=== PATIENT | female | born 1980 | race Caucasian/White ===

== ENCOUNTER → 2023-07-02 08:03 | Outpatient (REF) | payer BC, SELFPAY | LOC: WDC 08:03 | PROVIDERS: ATTENDING PHYSICIAN Nurse Practitioner Adult Health; FAMILY PHYSICIAN Student in an Organized Health Care Education/Training Program | DX: Z12.31 Encounter for screening mammogram for malignant neoplasm of breast (principal); R92.8 Other abnormal and inconclusive findings on diagnostic imaging of breast | CPT/HCPCS: 76642; 77063; 77067 ==

== ENCOUNTER 2023-09-15 23:30 | Inpatient (IN) | payer BC, SELFPAY ==
[2023-09-15] VITALS (9 sets, daily range): BP systolic 116–143; BP diastolic 78–95; BMI 40.2
[2023-09-15 17:02] LABS: % Basophils 0.4 % (0-2); % Eosinophils 1.2 % (0-6); % Immature Granulocytes 0.5 % (0-0.5); % Lymphocytes 21.3 % (20.5-51.1); % Monocytes 5.6 % (1.7-9.3); Absolute Basophils 0.1 10^3/uL (0-0.2); Absolute Eosinophils 0.2 10^3/uL (0-0.7); Absolute Immature Granulocytes 0.1 10^3/uL (0-0.05); Absolute Lymphocytes 3.2 10^3/uL (1.2-3.4); Absolute Monocytes 0.8 10^3/uL (0.1-0.6); Absolute Neutrophils 10.8 10^3/uL (1.4-6.5); Hematocrit 40.4 % (37.0-47.0); Hemoglobin 13.6 g/dL (12.0-16.0); Mean Corp Hgb Conc. 33.7 g/dL (33.0-37.0); Mean Corpuscular Hgb 31.2 pg (27.0-31.0); Mean Corpuscular Volume 92.7 fL (81.0-99.0); Mean Platelet Volume 10.7 fL (7.4-10.4); Nucleated Red Blood Cells % 0 %; Platelet Count 285 10^3/uL (130-400); Red Blood Cell Count 4.36 10^6/uL (4.20-5.40); Red Cell Dist. Width 11.9 % (11.5-14.5); White Blood Cell Count 15.1 10^3/uL (4.8-10.8)
[2023-09-15 17:20] LABS: ALT (SGPT) 30 U/L (0-35); AST (SGOT) 29 U/L (14-36); Albumin 4.2 g/dl (3.5-5.0); Alkaline Phosphatase 103 U/L (38-126); Blood Urea Nitrogen 15 mg/dl (7-17); Calcium 9.6 mg/dl (8.4-10.2); Carbon Dioxide 26 mmol/L (22-30); Chloride 103 mmol/L (98-107); Glucose 115 mg/dl (70-99); Potassium 3.9 mmol/L (3.5-5.1); Sodium 137 mmol/L (135-145); Total Bilirubin 0.5 mg/dl (0.2-1.3); Total Protein 7.2 g/dl (6.3-8.2); eGFR > 60.00
[2023-09-15 17:35] LABS: Troponin I 0.062 ng/ml
--- NOTE | 2023-09-15 18:53 | ED.GENMED ---
History of Present Illness
General
Chief Complaint: Cardiac Symptoms
Source: patient
Exam Limitations: none
Time Seen by Provider: 09/15/23 18:24
Travel History
Have you had any contact with someone who has COVID-19?: No
Do you have any symptoms of coronavirus? Fever > 100 degrees, chills, cough, shortness of breath, sore throat, loss of taste or smell, muscle aches, or headache?: No
History of Present Illness
History of Present Illness:
This is a 43 year old female that comes in with c/o chest pain. States that she started with mid chest pain which she thought was heartburn but she doesn't normally have heartburn. States that this was on and off yesterday. Today the pain was worse
and since about 12 noon the pain has been constant. States that she awoke on Friday with a tension headache and pain in the posterior shoulders and mid back. States that she feels SOB with the chest pain and today she was lightheaded. Denies any
fever, chills, abd pain, nausea, vomiting, diarrhea, headache, urinary burning
Past History
Past History
ED Past Medical History: Asthma (Allergy and sport induced) and Other (Enlarged thyroid, Vertigo)
ED Past Surgical History: Tonsilectomy (and adenoids, ) and Other (Myringotomy as child)
Social History
Tobacco: Non-smoker
Alcohol: Occasional
Personal:
Living: with family
Review of Systems
Review of Systems
All Other Systems: ROS reviewed and negative except as documented in HPI and ROS
Constitutional: Reports no symptoms; Denies fever or chills
EENT: Reports no symptoms
Respiratory: Reports trouble breathing; Denies cough
Cardiac: Reports chest pain
ABD/GI: Denies abdominal pain, nausea, vomiting or diarrhea
: Reports no symptoms; Denies dysuria, frequency or urgency
Musculoskeletal: Reports no symptoms
Skin: Reports no symptoms
Neurological: Reports dizzy; Denies headache
Psychiatric: Reports no symptoms
Phy Exam
General Physical Exam
General Presentation: no apparent distress
General age: appears stated age
General Skin: warm and dry
General Habitus: normal
General Mental: alert
General Hydration: appears well hydrated
ENT Exam
ENT Exam: TM's normal, pharynx normal and neck supple
Eye Exam
Eye Exam: EOMI
Cardiovascular Exam
Cardiovascular Exam: regular rate/rhythm, no edema, no murmur and normal peripheral pulses
Pulmonary Exam
Pulmonary Exam: lungs clear, no respiratory distress, no rales, chest non tender, no crackles, no rhonchi, no wheezing and no cough
Gastrointestinal Exam
Gastrointestinal Exam: normal bowel sounds, soft, no organomegaly, no pulsatile mass, non distended and tender (slight right lower abd tenderness with palpation)
Musculoskeletal Exam
Musculoskeletal Exam: full ROM and no edema
Skin Exam
Skin Exam: normal color, warm/dry, no rash and no petechia
Psychiatric Exam
Psychiatric Exam: normal mood/affect
Course
Orders/Labs/Results
Orders:
Orders
09/15/23 16:21
Electrocardiogram (*1) Urgent
Reason for Study: Chest Pain
EKG- Treatment ONCE
09/15/23 16:48
Complete Blood Count/With Diff Urgent
Comprehensive Metabolic Panel Urgent
HCG, Serum Qualitative Screen Urgent
Comment: ADDON
Troponin I Urgent
09/15/23 18:26
EKG- Treatment ONCE
CR Chest - 2 Views Urgent
Comment:
Reason For Exam: Chest pain
09/15/23 18:53
Nitroglycerin Sublingual [Nitrostat (Sublingual)] 0.4 mg SL NOW STA
09/15/23 18:54
Aspirin Chewable [Low Strength Aspirin] 324 mg PO NOW STA
09/15/23 19:34
CT Chest Pe Study Urgent
Comment:
Reason For Exam: Chest Pain
09/15/23 19:40
Mag Hydrox/Al Hydrox/Simeth [Maalox] 30 ml PO NOW STA
09/15/23 19:50
Electrocardiogram (*1) Urgent
Reason for Study: Chest Pain
Other Reason for Exam: Repeat with Troponin
09/15/23 20:17
COVID-19 Antigen Urgent
Source: Nasal Swab
Troponin I Urgent
09/15/23 20:20
Add On- LAB Urgent
Tests Added?: HCG
09/15/23 20:22
Test Result ONCE
Abnormal Lab Results
09/15/23 09/15/23
16:48 20:17
WBC 15.1 H 10^3/uL
(4.8-10.8)
MCH 31.2 H pg
(27.0-31.0)
MPV 10.7 H fL
(7.4-10.4)
Abs Immat Gran (auto) 0.1 H 10^3/uL
(0-0.05)
Absolute Neuts (auto) 10.8 H 10^3/uL
(1.4-6.5)
Absolute Monos (auto) 0.8 H 10^3/uL
(0.1-0.6)
Glucose 115 H mg/dl
(70-99)
Troponin I 0.062 H* ng/ml 0.268 H* D ng/ml
09/15/23 16:48
09/15/23 16:48
Leukocytosis, Glucose nonfasting. Elevated Troponin.
Repeat Troponin 0.268
Vital Signs
Initial and Last Documented VS:
Initial Vital Signs
Temp Pulse Resp BP Pulse Ox
98.3 F 93 20 143/95 99
09/15/23 16:41 09/15/23 16:41 09/15/23 16:41 09/15/23 16:41 09/15/23 16:41
Last Documented Vital Signs
Temp Pulse Resp BP Pulse Ox
98.3 F 77 14 122/79 95
09/15/23 16:41 09/15/23 21:00 09/15/23 21:00 09/15/23 21:00 09/15/23 21:00
MDM/Problems Addressed
Differential Diagnosis Includes:
Coronary syndrome,
MDM/Problems Addressed:
This is a 43 year old female that comes in with c/o chest pain. States that this started yesterday and was on and off. State that since about 12 noon today the pain has been constant. States that she is SOB.
Will get labs and chest x-ray. Explained to patent that her Troponin is elevated and her story is concerning. Will admit patient for further evaluation.
Repeat ECG: rate 77, NSR, Left axis, NOrmal QRS, Long Qt, `Non specific ST Depression V4, V5, Checked by Dr. Flowers
Chronic conditions affecting care:
NA
Acute Exacerbation and/or Progression of Chronic Illness:
NA
*Radiology
Radiology exam reviewed: preliminary read by ED provider (Chest- Negative for active disease)
*Pulse Oximetry
Patient hypoxic: no
*EKG
Interpreted by ED Provider?: Yes
Heart Rate: 90
Rate: normal
Rhythm: sinus
Hardin: normal axis
Interval: normal interval and long QT
QRS Pattern: normal QRS
Ischemia: non-specific ST changes (V4, V5, V6, )
*Strap Machine Operator Interpretation
Rate: normal
Heart Rate: 76
Rhythm: sinus
*Critical Care Note
Total Time (30-74mins, 75-104mins- exclusive of procedures): Not Applicable
ED Attending Note
-
Portions of this chart may have been created with voice recognition software.� Occasional wrong word or��sound alike� substitutions may have occurred due to the inherent limitations of voice recognition software.
Discharge Plan
Departure
Patient Disposition: Admit
Date of Disposition: 09/15/23
Time of Disposition: 19:05
Admit to: Telemetry
Presentation/result/management discussed w/ accepting MD/DO: Hospitalist
Patient with high blood pressure during this ER visit?: Yes
Condition: Good
Covid-19: Negative COVID-19
Discharge Problem:
Chest pain, Elevated troponin
Prescriptions:
No Action
fluoxetine 20 mg tablet
40 mg PO DAILY
dextroamphetamine-amphetamine [Adderall XR] 30 mg Capsule,Extended Release 24hr
30 mg PO DAILY
cetirizine [Zyrtec] 10 mg Tablet
10 mg PO DAILY
fluticasone propionate [Flonase] 50 mcg/actuation [place],Suspension
1 spray INTRANASAL DAILY
vitamin D3-vitamin K2 (MK4) 1,000-100 unit-mcg Tablet
1 tab PO DAILY
Referrals:
Manda Reed PA-C [Family Provider] -
Interventions
Interventions:
*Risk Screen - Suicide Last Done: 09/15/23 16:41
*General Assessment Last Done: 09/15/23 16:41
*Neglect/Abuse Screening Last Done: 09/15/23 16:41
ED- Pulmonary Assessment Last Done: 09/15/23 18:40
ED- Cardiac Assessment Last Done: 09/15/23 18:40
Discharge Date and Time
Print Language: ERITREAN
[2023-09-15] MEDS: NITROSTAT (SUBLINGUAL) 0.400000000000000022 MG SL (19:06)
[2023-09-15] MEDS: LOW STRENGTH ASPIRIN 324 MG PO (19:06)
--- NOTE | 2023-09-15 19:37 | HPS.HSE ---
Family Physician
-
Family Physician: Manda Reed PA-C
Chief Complaint
-
Chest Pressure
History of Present Illness
Patient is a 43y F with PMH significant for anxiety and morbid obesity who presents to ED complaining of chest pressure. Patient states that she started with symptoms yesterday and they were off-and-on throughout the day. Symptoms include chest
pressure or heaviness - like a large cat sitting on her chest. Some mild dyspnea. Significant diaphoresis. No nausea / emesis. No fevers / chills. Patient states that symptoms seem worse with activity.
Today the chest pressure has been constant since around noon. In addition, she has a burning sensation in the substernal area - which seems different from her occasional heartburn.
Patient reports fatigue and poor appetite over the past few days. Mild headache, upper back and neck discomfort and irritability.
She denies any personal history of heart disease.
In the ED, patient continues to have chest pressure that was not improved with SL NTG.
Medical History
Past Medical History
Past Medical History: Reports Other
Additional Past Medical History:
Anxiety / Depression
ADHD
Sensorineural Hearing Loss
Environmental Allergies
Past Surgical History: Reports Other
Additional Past Surgical History:
T&A
Social History
Tobacco: Non-smoker
Alcohol: Occasional
Drug: None
Family History
Family History: Diabetes
Allergies / Home Medications
Allergies reflects when Allergies were last updated in [facility].
Home Medications with original date entered in [facility]
Allergy/Medication List:
Allergies
Allergy/AdvReac Type Severity Reaction Status Date / Time
dog Allergy Hives Uncoded 09/15/23 16:40
seasonal Allergy Unknown Uncoded 09/15/23 16:40
Home Medications
cetirizine 10 mg tablet (Zyrtec) 10 mg PO DAILY 09/15/23
cholecalciferol (vit D3) 1,000 unit-vitamin K2 (MK4) 100 mcg tablet 1 tab PO DAILY 09/15/23
dextroamphetamine-amphetamine ER 30 mg 24hr capsule,extend release (Adderall XR) 30 mg PO DAILY 09/15/23
fluoxetine 20 mg tablet 40 mg PO DAILY 09/15/23
fluticasone propionate 50 mcg/actuation nasal spray,suspension 1 spray intranasal DAILY 09/15/23
Review of Systems
-
History Source: Patient
A 12 point ROS was completed and negative except as noted: Yes
Constitutional: Reports Fatigue; Denies Fever or Chills
EENT: Denies Sore Throat
Respiratory: Reports Trouble Breathing; Denies Cough or Hemoptysis
Cardiac: Reports Chest Pain and Diaphoresis; Denies Palpitations or Syncope
Abdomen/GI: Reports Anorexia; Denies Abdominal Pain, Nausea, Vomiting or Diarrhea
: Denies Dysuria, Frequency or Flank Pain
Musculoskeletal: Reports Other (Back Pain / Neck Pain); Denies Joint Pain
Neurological: Reports Headache; Denies Dizzy
Psych: Denies Depression or Anxiety
Physical Exam
Vital Signs
Vital Signs
Temp Pulse Resp BP Pulse Ox
98.3 F 93 20 143/95 98
09/15/23 16:41 09/15/23 16:41 09/15/23 16:41 09/15/23 16:41 09/15/23 18:40
Physical Exam
General: Other (43y F in no acute distress.)
HEENT: Moist mucous membranes and PERRLA
Respiratory: Clear; No Wheezes, Rales or Rhonchi
Cardiac: S1/S2 and Regular Rhythm; No Murmur
GI: Soft, Non Tender, Non Distended and Normal Bowel Sounds
Musculoskeletal: No Clubbing, No Cyanosis and No Edema
Neuro: AO x 3
Laboratory Results
-
09/15/23 16:48
09/15/23 16:48
Laboratory Results
Total Bilirubin 0.5 mg/dl (0.2-1.3) 09/15/23 16:48
AST 29 U/L (14-36) 09/15/23 16:48
ALT 30 U/L (0-35) 09/15/23 16:48
Alkaline Phosphatase 103 U/L (38-126) 09/15/23 16:48
Troponin I 0.062 ng/ml H* 09/15/23 16:48
Impression/Plan
-
A/P: Patient is a 43y F with PMH significant for anxiety and obesity who presents to ED complaining of chest pressure x 2 days.
Chest Pain
Abnormal Troponin
- Admit for further evaluation and treatment.
- CT chest without evidence of dissection, PE, etc.
- EKG is unremarkable at present.
- Patient with persistent pain and 2nd troponin increased from prior.
- Cardiology evaluation for additional recommendations / potential ischemic evaluation.
- Seen by Cardiology in the ED. Continue medical management with plan for eventual ischemic evaluation.
- Patient continues to have discomfort and may require earlier intervention if this cannot be resolved.
Leukocytosis
- Patient states that she has chronic / intermittent elevation in her WBC.
- No specific diagnosis that she is aware of.
- Follow for any changes, new symptoms, development of fever, etc.
Anxiety / Depression
ADHD
- Stable. Mood appears stable at present.
- Continue fluoxetine.
- Hold amphetamine.
Morbid Obesity due to excess calories
- Affects all aspects of care.
- Encourage healthy diet and increased exercise with goal of weight loss.
DVT Prophylaxis: On IV Heparin.
Code Status: Full
[2023-09-15] MEDS: MAALOX 30 ML PO (19:56)
[2023-09-15 20:50] LABS: HCG, Serum Qualitative Screen Negative
[2023-09-15 20:56] LABS: COVID-19 Antigen Negative (Negative)
[2023-09-15 21:06] LABS: Troponin I 0.268 ng/ml
[2023-09-15] MEDS: MORPHINE SULFATE 2 MG IV ×2 (22:24→23:46)
[2023-09-15] MEDS: HEPARIN 4000 UNITS IV (22:28)
[2023-09-15] MEDS: HEPARIN 25000 UNITS/250 ML IV (22:31)
[2023-09-15 22:39] LABS: Hematocrit 35.9 % (37.0-47.0); Hemoglobin 12.7 g/dL (12.0-16.0); Mean Corp Hgb Conc. 35.4 g/dL (33.0-37.0); Mean Corpuscular Hgb 31.7 pg (27.0-31.0); Mean Corpuscular Volume 89.5 fL (81.0-99.0); Mean Platelet Volume 10.5 fL (7.4-10.4); Platelet Count 273 10^3/uL (130-400); Red Blood Cell Count 4.01 10^6/uL (4.20-5.40); Red Cell Dist. Width 12.1 % (11.5-14.5); White Blood Cell Count 14.6 10^3/uL (4.8-10.8)
--- NOTE | 2023-09-15 23:33 | W.PN.CD ---
Today's Communication / Plan
-
Treat for ACS/NSTEMI
ASA/heparin/BB/ can retry NTG with Tylenol
Anticipate cardiac cath within next 12 hours or so
Echo
If cath negative could consider cardia MRI looking for myocarditis
Impression / Plan
-
Chest pain with rising troponin
- DDx 1) typical ACS with underlying CAD, 2) SCAD. 3) myocarditis, 4) other- the negative CTA reasonably rules out pulmonary embolism and aortic dissection
Anxiety
depression
ADHD
Seasonal allergies
Frequent ear infections
Hearing loss
Morbid obesity, BMI 40.2 here in ER
Mild mixed hyperlipidemia, LDL 144, HDL 62, TC 232, TG 139 on 07/11/2023
Physical Exam
Vital Signs/Labs
Vital Signs
Temp Pulse Resp BP Pulse Ox
100.0 F 84 17 132/86 94
09/15/23 23:24 09/15/23 23:30 09/15/23 23:30 09/15/23 23:00 09/15/23 23:30
09/14/23 09/15/23 09/16/23
06:59 06:59 06:59
Actual Weight 113 kg
09/15/23 22:20
09/15/23 16:48
APTT 35.0 Sec (23.4-35.0) 09/15/23 22:20
LAB Results
09/15/23 09/15/23 09/15/23
16:48 20:17 22:27
Troponin I 0.062 H* 0.268 H* D 0.460 H* D
Data Reviewed
-
Date of Service: September 15, 2023
[2023-09-15] MEDS: LOPRESSOR 25 MG PO (23:47)
[2023-09-16] VITALS (18 sets, daily range): BP systolic 103–142; BP diastolic 59–94; BMI 40.6
[2023-09-16 04:52] LABS: APTT 38.5 Sec (23.4-35.0)
--- NOTE | 2023-09-16 05:37 | PTCARENOTE ---
Patient admitted to 2250. Walked into room. She is AO x4, [facility], b/l aids. Chest pressure, 'Feels like a cat it sitting on my chest' 1-2 out 10. Nitro gtt started at 5mcg/min and Heparin increased to 1200 units/hr per JUN per protocol. SR on
telemetry. Plan of care and call ayala reviewed
[2023-09-16] MEDS: TYLENOL 650 MG PO ×2 (06:48→10:11)
[2023-09-16] MEDS: LOPRESSOR 25 MG PO ×3 (06:49→23:14)
[2023-09-16 07:03] LABS: Hematocrit 36.3 % (37.0-47.0); Hemoglobin 12.6 g/dL (12.0-16.0); Mean Corp Hgb Conc. 34.7 g/dL (33.0-37.0); Mean Corpuscular Hgb 31.3 pg (27.0-31.0); Mean Corpuscular Volume 90.1 fL (81.0-99.0); Mean Platelet Volume 10.7 fL (7.4-10.4); Platelet Count 289 10^3/uL (130-400); Red Blood Cell Count 4.03 10^6/uL (4.20-5.40); Red Cell Dist. Width 12.1 % (11.5-14.5); White Blood Cell Count 11.7 10^3/uL (4.8-10.8)
[2023-09-16 07:33] LABS: Troponin I 0.687 ng/ml
[2023-09-16 07:35] LABS: Blood Urea Nitrogen 14 mg/dl (7-17); Calcium 9.1 mg/dl (8.4-10.2); Carbon Dioxide 25 mmol/L (22-30); Chloride 106 mmol/L (98-107); Estimated Creatinine Clearance > 125 ml/min; Glucose 90 mg/dl (70-99); HDL Cholesterol 52 mg/dl; LDL Cholesterol, Calculated 135 mg/dl; Potassium 4.1 mmol/L (3.5-5.1); Sodium 137 mmol/L (135-145); Total Cholesterol 215 mg/dl (50-199); Triglyceride 143 mg/dl (10-149); Very Low Density Lipoprotein 28 mg/dl (0-30); eGFR > 60.00
[2023-09-16] MEDS: LOW STRENGTH ASPIRIN 81 MG PO (07:55)
[2023-09-16] MEDS: BRILINTA 180 MG PO (07:55)
[2023-09-16] MEDS: PROTONIX IV 40 MG IV (07:58)
[2023-09-16] MEDS: NSS (PRESERVATIVE FREE) 10 ML IV (07:58)
[2023-09-16 08:16] LABS: TSH Reflex To Free T4 1.89 uIU/ml (0.47-4.68)
--- NOTE | 2023-09-16 08:25 | PTCARENOTE ---
Pt c/o increased chest pain this morning, rated 5/10, across chest, described as burning and pressure. Dr Santosaike aware, EKG done. IV Ntg drip increased from 5 to 10 mcg/min. Pt also c/o headache, rated 5/10. She recently had Tylenol. Ice pack
given at Pt request for headache. Prior to EKG, Pt became diaphoretic and nauseous. Mirtha Lind came to see Pt. Pt to go to construction laborer this morning. Ntg drip increased from 10 to 12.5 mcg. Pt reported having some relief from CP, now rating it
2/10. headache also slightly better. Dr Crawford came to see Pt. Report given to construction laborer nurse, Christine. Pt picked up by construction laborer nurses and on her way to lab currently.
[2023-09-16 08:50] LABS: ACT-LR - POC 236 Seconds (116-155)
[2023-09-16 09:02] LABS: ACT-LR - POC 231 Seconds (116-155)
--- NOTE | 2023-09-16 09:40 | W.PN.HOSP.TC ---
Today's Communication/Plan
-
Monitor today
Plan for discharge if cleared by cardiology tomorrow
Assessment / Plan
Assessment / Plan
43y F with PMH significant for anxiety and obesity who presents to ED complaining of chest pressure x 2 days.
NSTEMI
- CT chest without evidence of dissection, PE, etc.
- EKG is unremarkable at present.
- Appreciate cardiology input, status post cardiac catheterization with stent placement x 2 on 09/15
- Continue aspirin, Brilinta
- Monitor overnight, discharge tomorrow if cleared by cardiology
Leukocytosis
- Patient states that she has chronic / intermittent elevation in her WBC.
- No specific diagnosis that she is aware of.
- Follow for any changes, new symptoms, development of fever, etc.
Anxiety / Depression
ADHD
- Stable. Mood appears stable at present.
- Continue fluoxetine.
- Hold amphetamine.
Morbid Obesity due to excess calories
- Affects all aspects of care.
- Encourage healthy diet and increased exercise with goal of weight loss.
DVT Prophylaxis: SCDs
Code Status: Full
Total time spent to see the patient on the floor, examine the patient, review data and lab results, discuss treatment plan with patient, nursing staff around 35 minutes.
Physical Exam
General: Obese, no acute distress
HEENT: Normocephalic, Atraumatic, EOMI, MMM
Respiratory: Clear to Auscultation bilaterally
Cardiac: Normal S1/S2, Regular Rate and Rhythm
GI: Soft, Nontender, Nondistended, Normal Bowel Sounds
Extremities: No Clubbing, Cyanosis, or Edema
Neuro: Nonfocal/Grossly Intact
Psych: Calm, Cooperative
Derm: No Visible lesions
Anticipated Discharge: Within 24 hours
Subjective/Interval History
-
Date of Service: September 16, 2023
Patient had cardiac catheterization with 2 stent placement. Her chest pain is much improved. No fever, no chest pain, no vomiting.
Objective Data
-
Labs:
Laboratory Results
09/15/23 09/16/23 09/16/23
22:20 04:30 06:42
WBC 14.6 H 11.7 H
Hgb 12.7 12.6
Hct 35.9 L 36.3 L
Plt Count 273 289
APTT 35.0 38.5 H
Sodium 137
Potassium 4.1
Chloride 106
Carbon Dioxide 25
BUN 14
Creatinine 0.6
Glucose 90
Calcium 9.1
09/16/23
11:15
WBC
Hgb
Hct
Plt Count
APTT Pending
Sodium
Potassium
Chloride
Carbon Dioxide
BUN
Creatinine
Glucose
Calcium
Vital Signs:
Vital Signs
Temp Pulse Resp BP Pulse Ox
98.3 F 63 16 120/80 98
09/16/23 04:52 09/16/23 05:15 09/16/23 04:52 09/16/23 04:52 09/16/23 04:52
[2023-09-16] MEDS: NSS 1000 IV (09:45)
--- NOTE | 2023-09-16 09:48 | ITS.CL.CATH ---
Education Administrative Assistant - Catheterization
Cardiac Catheterization
Procedure Report:
CARDIAC CATHETERIZATION REPORT
Date of Procedure: 09/16/2023
Referring: Casa Nava MD
Indication: Non-STEMI with ongoing chest discomfort (5 out of 10)
HEMODYNAMIC DATA
AO: 104/76
LV: 104/21
LEFT VENTRICULOGRAPHY: Normal left ventricular wall motion with EF 58%
CORONARY ANGIOGRAPHY
Dominance: Right
Left Main: Normal
LAD: Normal
Circumflex: There is 95% stenosis in the distal aspect of a very large OM 2 just proximal to a bifurcation point. Flow distal to the lesion into both daughter branches is DEMI grade III. The circumflex is otherwise normal.
RCA: Normal dominant vessel with
Angioplasty: At the conclusion of the diagnostic study, we considered intervening to treat the distal circumflex 90% lesion. The patient had ongoing chest pain on arrival to the Education Administrative Assistant and was sedated at the conclusion of the diagnostic study. I
was concerned about SCAD as a cause of her non-STEMI and expressed this even prior to the catheterization procedure. However, the angiographic appearance of the lesion was quite consistent with typical plaque rupture and ultimately I decided to
intervene. Heparin was used for anticoagulation. A 6 [place] EBU 3.5 guide catheter was advanced to the left coronary artery. A short Hi-Torque floppy wire was advanced into the circumflex and across the lesion. The distal end of the wire was
placed in the larger daughter branch. Direct stenting with a 2.25 x 18 Xience SANGITA deployed at 14 andie (equals 2.48 mm) was accomplished. Following stent deployment there new high-grade stenosis of a branch of OM1 well superior to the site of
stenting. This strongly suggested SCAD was at play. Angiography subsequently showed possible thrombus at the proximal edge of the stent with haziness in the vessel. A 3.0 x 18 Xience SANGITA was deployed in a proximally overlapping fashion to the
first stent with deployment pressure of 14 andie. We then postdilated the more distal stent with a 2.75 NC trek to 14 andie. The angiographic result at the original lesion site was outstanding with no residual stenosis and preservation of normal
antegrade flow into both daughter branches despite some plaque shift into the smaller daughter branch. The more proximal branch of OM1 showed some angiographic improvement and continued DEMI grade III flow and I expect this will not have residual
stenosis once healed. Patient was transferred pain-free from the Education Administrative Assistant to the IVU.
Closure Device: None-the procedure was performed via the right radial artery. The Carlin's test was normal prior to the procedure.
Radiation (mGy): 730
DAP (cm2.Gy): 51.6
Fluoroscopy time: 8.7 minutes
CONCLUSIONS
1: Non-STEMI (troponin 0.6 and rising) with ongoing chest discomfort resulting in decision to proceed with urgent angiography
2: Single-vessel CAD as described. Although concerned about SCAD being the mechanism of her ACS, the lesion had an appearance consistent with routine plaque rupture prompting a decision to proceed with PCI. We successfully placed overlapping 2.25
x 18 and 3.0 x 18 Xience drug-eluting stents. The final angiographic result was excellent with no residual stenosis at the original lesion site. There was new 'stenosis' most likely reflecting propagation of spontaneous dissection and a more
proximal branch of OM1. Fortunately this had normal flow and can be expected to heal without treatment
3. Recommend routine post AK and PCI therapy including DAPT x 1 yr
Copy to: Casa Nava MD, Manda Reed PA-C
Kee Crawford MD, [facility], [facility]
[2023-09-16] MEDS: PROZAC 40 MG PO (10:11)
--- NOTE | 2023-09-16 11:57 | CM ---
Addendum entered by Shana Morales 09/16/23 12:04:
Telephone call to [facility] to see if Brilinta 90 mg po bid is in stock. [facility] states they have Brilinta 90 mg po bid in stock.
Original Note:
Reviewed chart. Met with Mrs. Bee to review discharge plans. She states prior to admission she resides with her spouse in a two story home with two steps to enter. She states she has a full flight of steps to get to bedroom/full bathroom.
She states she has a powder room on the first floor. She states prior to admission she was independent with ambulation and adls. She states she does not have any DME in the home. She states she has a prescription plan with [employer] and
uses [facility]. Telephone call to [employer],) check on co-pay for Brilinta 90 mg po bid. Her co-pay for one month would be $86.61 a month or 90 day mail order is $245.28. She has commercial insurance so she can use the
$5.00 co-pay card. Placed the $5.00 coupon in his red discharge folder. Medical work-up in progress. The discharge plan is to return home with his spouse when medically stable.
[2023-09-16 12:23] LABS: Glycohemoglobin (HgbA1c) 5.5 % (4.0-5.6)
[2023-09-16 13:39] LABS: ACT-LR - POC > 397 Seconds (116-155)
[2023-09-16] MEDS: LOPRESSOR PO (14:14)
[2023-09-16 16:16] LABS: Troponin I 0.528 ng/ml
[2023-09-16] MEDS: LIPITOR 80 MG PO (18:27)
[2023-09-16] MEDS: BRILINTA 90 MG PO (19:49)
--- NOTE | 2023-09-16 22:57 | PTCARENOTE ---
Patient denies any complaints of pain or discomfort. SR on the monitor 60-70's. Right radial cath site wnl.
--- NOTE | 2023-09-16 23:54 | PTCARENOTE ---
assumed care of pt- pt NSR sleeping without complaints. R radial CDI
[2023-09-17 03:56] VITALS: BP 137/62
[2023-09-17 04:41] LABS: Hematocrit 37.8 % (37.0-47.0); Mean Corp Hgb Conc. 34.4 g/dL (33.0-37.0); Mean Platelet Volume 10.5 fL (7.4-10.4); Platelet Count 290 10^3/uL (130-400); Red Cell Dist. Width 12.1 % (11.5-14.5); White Blood Cell Count 14.4 10^3/uL (4.8-10.8)
[2023-09-17 05:06] LABS: Blood Urea Nitrogen 10 mg/dl (7-17); Calcium 9.4 mg/dl (8.4-10.2); Carbon Dioxide 23 mmol/L (22-30); Chloride 106 mmol/L (98-107); Estimated Creatinine Clearance > 125 ml/min; Glucose 90 mg/dl (70-99); Potassium 4.2 mmol/L (3.5-5.1); Sodium 137 mmol/L (135-145); eGFR > 60.00
[2023-09-17 05:15] LABS: Troponin I 0.581 ng/ml
[2023-09-17] MEDS: LOPRESSOR 25 MG PO (06:14)
[2023-09-17 06:15] VITALS: BP 119/78
[2023-09-17] MEDS: PROZAC 40 MG PO (08:37)
[2023-09-17] MEDS: PROTONIX 40 MG PO (08:37)
[2023-09-17] MEDS: BRILINTA 90 MG PO (08:37)
[2023-09-17] MEDS: LOW STRENGTH ASPIRIN 81 MG PO (08:38)
--- NOTE | 2023-09-17 08:54 | W.PN.CD ---
Today's Communication / Plan
-
OK for home on the following cardiac regimen:
- ASA 81 daily
- Brilinta 90 mg bid
- Metoprolol ER 50 mg daily
- NTG 0.4 mg SL [id number] prn cp
- Atorvastatin 80 mg daily
- Cardiac rehab should set up appointment
- F/u in my office in 1-2 weeks
Impression / Plan
-
NSTEMI from SCAD of an OM treated with PCI/SANGITA
- Nml LVEF by echo and LV gram
Anxiety
depression
ADHD
Seasonal allergies
Frequent ear infections
Hearing loss
Morbid obesity, BMI 40.2 here in ER
Mild mixed hyperlipidemia, LDL 144, HDL 62, TC 232, TG 139 on 07/11/2023
Subjective: No cath complications. No CP.
Physical Exam
Vital Signs/Labs
Vital Signs
Temp Pulse Resp BP Pulse Ox
98.4 F 62 20 119/78 95
09/17/23 06:39 09/17/23 06:39 09/17/23 03:10 09/17/23 06:14 09/17/23 03:10
09/16/23 09/17/23 09/18/23
06:59 06:59 06:59
Actual Weight 110.7 kg
09/17/23 04:11
09/17/23 04:11
APTT Cancelled 09/16/23 11:15
Triglycerides 143 mg/dl (10-149) 09/16/23 06:42
LDL Cholesterol, Calc 135 mg/dl 09/16/23 06:42
VLDL Cholesterol, Calc 28 mg/dl (0-30) 09/16/23 06:42
HDL Cholesterol 52 mg/dl 09/16/23 06:42
LAB Results
09/15/23 09/15/23 09/15/23
16:48 20:17 22:27
Troponin I 0.062 H* 0.268 H* D 0.460 H* D
09/16/23 09/16/23 09/16/23
06:42 10:46 15:37
Troponin I 0.687 H* Cancelled 0.528 H*
09/17/23
04:11
Troponin I 0.581 H*
Physical Exam
Constitutional: No acute distress
EENT: Anicteric
Cardiovascular: Rhythm & rate is regular and Pedal edema is absent
Respiratory: Respiratory effort normal and Lungs clear to auscul.
GI: Soft and Distention absent
Neuro/Psych: AO x 3
Other: Cath Site (wrist w/o swelling, hand normal )
Data Reviewed
-
Date of Service: September 17, 2023
[2023-09-17 11:13] VITALS: BP 116/88
--- NOTE | 2023-09-17 13:23 | W.PN.HOSP.TC ---
Today's Communication/Plan
-
Discharge today
Assessment / Plan
Assessment / Plan
43y F with PMH significant for anxiety and obesity who presents to ED complaining of chest pressure x 2 days.
NSTEMI
- CT chest without evidence of dissection, PE, etc.
- EKG is unremarkable at present.
- Appreciate cardiology input, status post cardiac catheterization with stent placement x 2 to OM on 09/15
- Continue aspirin 81 mg daily, Brilinta 90 mg twice a day, metoprolol succinate 50 mg daily, atorvastatin 80 mg daily. Will also prescribe nitroglycerin 0.4 mg sublingual every 5 minutes as needed for chest pain
- Cleared by cardiology for discharge, follow-up with cardiology in the office
Leukocytosis
- Patient states that she has chronic / intermittent elevation in her WBC.
- No specific diagnosis that she is aware of.
Anxiety / Depression
ADHD
- Stable. Mood appears stable at present.
- Continue fluoxetine.
- Hold amphetamine while inpatient, can resume at discharge
Morbid Obesity due to excess calories
- Affects all aspects of care.
- Encourage healthy diet and increased exercise with goal of weight loss.
DVT Prophylaxis: SCDs
Code Status: Full
Physical Exam
General: Obese, no acute distress
HEENT: Normocephalic, Atraumatic, EOMI, MMM
Respiratory: Clear to Auscultation bilaterally
Cardiac: Normal S1/S2, Regular Rate and Rhythm
GI: Soft, Nontender, Nondistended, Normal Bowel Sounds
Extremities: No Clubbing, Cyanosis, or Edema
Neuro: Nonfocal/Grossly Intact
Psych: Calm, Cooperative
Derm: No Visible lesions
Anticipated Discharge: Today
Subjective/Interval History
-
Date of Service: September 17, 2023
Patient denies chest pain, shortness of breath, palpitations. No fever, no vomiting.
Objective Data
-
Labs:
Laboratory Results
09/17/23
04:11
WBC 14.4 H
Hgb 13.0
Hct 37.8
Plt Count 290
Sodium 137
Potassium 4.2
Chloride 106
Carbon Dioxide 23
BUN 10
Creatinine 0.6
Glucose 90
Calcium 9.4
Vital Signs:
Vital Signs
Temp Pulse Resp BP Pulse Ox
99.0 F 58 16 116/88 97
09/17/23 11:11 09/17/23 11:45 09/17/23 11:11 09/17/23 11:13 09/17/23 11:11
I&O
09/16/23 09/17/23 09/18/23
06:59 06:59 06:59
Intake Total 1789
Balance 1789
--- NOTE | 2023-09-17 13:27 | W.DCSUMMARY ---
Discharge Summary
Discharge Data
Date of Admission: 09/15/23
Date of Discharge: 09/17/23
-
Pending Results: No
Hospital Course
Discharge diagnosis:
Non-ST segment elevation myocardial infarction
Chronic intermittent leukocytosis
Anxiety/depression
Morbid obesity due to excess calories
Consults: Cardiology
Echo:
LV ejection fraction is 60-65%, by visual assessment. No regional wall motion
abnormalities are seen.
Normal right ventricular size and function.
No significant valvular disease.
Procedures:
09/16/2023ardiac catheterization with PCI with SANGITA x 2 to the OM
Hospital course:
43-year-old female with a past medical history of obesity, anxiety, and ADHD presented with chest pressure, and was found to have an elevated troponin. Patient was seen in conjunction with cardiology. She underwent cardiac catheterization, and had
PCI with SANGITA placement x 2 to the OM. Patient was started on aspirin 81 mg daily, Brilinta 90 mg twice a day, metoprolol succinate 50 mg daily, and atorvastatin 80 mg daily. She was monitored overnight. She is medically stable and cleared by
cardiology for discharge. She will be referred to outpatient cardiac rehab. She needs to follow-up with cardiology in the office as directed.
Disposition: Home self-care
Discharge planning: Required 36-minute
Discharge Plan
-
Patient Disposition: Home (Routine Discharge)
Discharge Diagnosis/Procedures: Non-ST elevation myocardial infarction status post angioplasty with stent to obtuse marginal, obesity
Diet: Low Cholesterol
Driving Restrictions: No driving for 24 hours
Other Services: Cardiac Rehab
Stand Alone Forms: DC Instructions- Cath/EP Lab
Referrals:
[facility] [Outside] - 10/15/23 1:00 pm
(Cardiac Rehab Orientation appointment is on October 15, 2023 at 1:00 pm
The Cardiac Rehab gym is located on the first floor of the [facility].)
Nasrin Marquez NP [Specified Professional Personl] - 10/07/23 2:40 pm
Manda Reed PA-C [Family Provider] - in one week
Prescriptions:
New
Brilinta 90 mg Tablet
90 mg PO BID Qty: 60 0RF
atorvastatin 80 mg Tablet
80 mg PO QPM Qty: 30 0RF
metoprolol succinate 50 mg Tablet Extended Release 24 Hr
50 mg PO DAILY Qty: 30 0RF
aspirin [Children's Aspirin] 81 mg Tablet,Chewable
81 mg PO DAILY Qty: 30 0RF
Continued
fluoxetine 20 mg tablet
40 mg PO DAILY
dextroamphetamine-amphetamine [Adderall XR] 30 mg Capsule,Extended Release 24hr
30 mg PO DAILY
cetirizine [Zyrtec] 10 mg Tablet
10 mg PO DAILY
fluticasone propionate 50 mcg/actuation [place],Suspension
1 spray INTRANASAL DAILY
vitamin D3-vitamin K2 (MK4) 1,000-100 unit-mcg Tablet
1 tab PO DAILY
ofloxacin 0.3 % Drops
4 drp OTIC (EAR) Q12H
Discharge Orders:
Discharge Patient (As Directed); Ordered 09/17/23
Ordered By: Grady Ng
Care Plan Goals
Care Plan Goals:
Problem: Readiness for enhanced knowledge related to diagnosis and treatment plan
Goal: Understand your diagnosis and treatment plan needs, including medications if applicable.
Instructions: Know your diagnosis, underlying causes and treatment plan options, including medications if applicable. Consult with your health care team to learn about your diagnosis and treatment plan, including medications if applicable.
Discharge Date and Time
Discharge Date/Time: 09/17/23 15:00
Print Language: HUNGARIAN
== END 2023-09-17 15:00 | disposition home or self-care (01) | DRG 322 ==
LOC: IVU 23:30
PROVIDERS: Clinical Nurse Specialist Family Health; Internal Medicine Cardiovascular Disease; Nurse Practitioner Adult Health; Student in an Organized Health Care Education/Training Program; ADMITTING PHYSICIAN Hospitalist; ATTENDING PHYSICIAN Family Medicine; CONSULT PHYSICIAN Internal Medicine Cardiovascular Disease; EMERGENCY PHYSICIAN Emergency Medicine; FAMILY PHYSICIAN Student in an Organized Health Care Education/Training Program
PROC: 4A023N7 Measurement of Cardiac Sampling and Pressure, Left Heart, Percutaneous Approach (ICD-10-PCS; 2023-09-16)
PROC: B2111ZZ Fluoroscopy of Multiple Coronary Arteries using Low Osmolar Contrast (ICD-10-PCS; 2023-09-16)
PROC: 027035Z Dilation of Coronary Artery, One Artery with Two Drug-eluting Intraluminal Devices, Percutaneous Approach (ICD-10-PCS; 2023-09-16)
DX: I21.4 Non-ST elevation (NSTEMI) myocardial infarction (principal); Z68.41 Body mass index [BMI] 40.0-44.9, adult; I25.10 Atherosclerotic heart disease of native coronary artery without angina pectoris; D72.829 Elevated white blood cell count, unspecified; F32.A Depression, unspecified; F41.9 Anxiety disorder, unspecified; E66.01 Morbid (severe) obesity due to excess calories; F90.9 Attention-deficit hyperactivity disorder, unspecified type; Z79.02 Long term (current) use of antithrombotics/antiplatelets; Z79.899 Other long term (current) drug therapy
CPT/HCPCS: 71046; 71275; 80048; 80053; 80061; 83036; 84443; 84484; 84703; 85025; 85027; 85347; 85730; 87811; 93005; 93306; 93458; 99285; C1725; C1769; C1874; C1894; C9600; J1327; Q9967

== ENCOUNTER 2023-09-19 15:50 | Emergency (ER) | payer BC, SELFPAY ==
[2023-09-19 16:00] VITALS: BP 151/93
[2023-09-19 16:19] VITALS: BMI 41.1
[2023-09-19 16:34] VITALS: BP 122/85
--- NOTE | 2023-09-19 16:38 | ED.GENMED ---
History of Present Illness
General
Chief Complaint: Cardiac Symptoms
Source: patient
Exam Limitations: none
Time Seen by Provider: 09/19/23 16:26
Travel History
Have you had any contact with someone who has COVID-19?: No
Do you have any symptoms of coronavirus? Fever > 100 degrees, chills, cough, shortness of breath, sore throat, loss of taste or smell, muscle aches, or headache?: No
History of Present Illness
History of Present Illness:
See MDM
Past History
Past History
ED Past Medical History: Asthma (Allergy and sport induced), CAD and Other (Enlarged thyroid, Vertigo)
ED Past Surgical History: Tonsilectomy (and adenoids, ) and Other (Myringotomy as child)
Social History
Tobacco: Non-smoker
Alcohol: Occasional
Personal:
Living: with family
Phy Exam
Physical Exam
Physical Exam:
See MDM
Course
Orders/Labs/Results
Orders:
Orders
09/19/23 15:54
ECG [Electrocardiogram (*1)] Urgent
Reason for Study: Chest Pain
09/19/23 15:55
EKG- Treatment ONCE
09/19/23 16:33
CR Chest - 2 Views Urgent
Comment:
Reason For Exam: chest pain, recent cardiac stents
09/19/23 16:35
Complete Blood Count/With Diff Urgent
Comprehensive Metabolic Panel Urgent
09/19/23 16:47
Colchicine 0.6 mg PO NOW STA
Abnormal Lab Results
09/19/23
16:35
WBC 14.4 H 10^3/uL
(4.8-10.8)
MCH 31.3 H pg
(27.0-31.0)
MPV 10.5 H fL
(7.4-10.4)
Abs Immat Gran (auto) 0.1 H 10^3/uL
(0-0.05)
Absolute Neuts (auto) 10.1 H 10^3/uL
(1.4-6.5)
Absolute Monos (auto) 1.1 H 10^3/uL
(0.1-0.6)
Lymphocytes % 19.5 L %
(20.5-51.1)
Calcium 10.4 H mg/dl
(8.4-10.2)
09/19/23 16:35
09/19/23 16:35
Vital Signs
Initial and Last Documented VS:
Initial Vital Signs
Temp Pulse Resp BP Pulse Ox
98.3 F 77 18 151/93 98
09/19/23 16:00 09/19/23 16:00 09/19/23 16:00 09/19/23 16:00 09/19/23 16:00
Last Documented Vital Signs
Temp Pulse Resp BP Pulse Ox
98.3 F 68 16 122/85 97
09/19/23 16:00 09/19/23 16:34 09/19/23 16:34 09/19/23 16:34 09/19/23 16:34
MDM/Problems Addressed
Differential Diagnosis Includes:
HPI and MDM Narrative:
43-year-old female presenting with recurrent chest pain. This occurred earlier today while she was cutting papers. This reminds her of a similar presentation for which she was admitted a few days ago and required 2 stents to her obtuse marginal.
Symptoms are not worse with exertion or deep inspiration. Chest pain under her left breast and right breast. She denies leg pain or leg swelling
EKG nonischemic. Since he just had cardiac catheterization, troponin is low yield and expectedly high. She has no tachycardia or leg edema to suggest PE
I did have the patient sit forward and the symptoms did improve somewhat
Physical exam
General: Well appearing and non-toxic
HEENT: protecting airway
Neck: appears supple
CV: No evidence of cyanosis. Regular rate and rhythm
Resp: No accessory muscle use
Abd: Non-distended
Extremities: No deformities. No leg edema or unilateral tenderness
Neuro: alert
Psych: Normal affect
Skin: Intact
Problems Addressed including Acute and Chronic Conditions affecting care:
1. Chest pain
Acuity: acute
Prognosis: stable
Details: Possibly post stent pericarditis. EKG nonischemic. Will discuss case with cardiology
Updates
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 Will start colchicine
6:13 PM on reevaluation, I had her lean forward and symptoms are improving. Chest x-ray clear. Patient is comfortable going home.
Differential Diagnosis (but not limited to): Pneumothorax, pericarditis, pneumonia
Testing considered: D-dimer but no clinical signs of DVT
Drug therapy (if applicable): OTC meds, please see d/c instruction regarding Rx drugs
Amount and/or Complexity of Data Reviewed
Clinical info obtained from: Patient
External data reviewed: Patient recently had 2 stents placed to her obtuse marginal only few days ago
Labs I independently reviewed (but not limited to): Mild leukocytosis
Radiology: X-ray independently reviewed: Chest x-ray clear
Pulse Ox: not hypoxic
EKG independently reviewed: Sinus rhythm, normal axis, no STEMI
Water Mangle Tender: Sinus rhythm
Critical Care: N/A
Risk of Complication:
Social Determinants of health: Good social support
Discussed with other providers: N/A
Escalation of Care includes Admit/Obs: After being observed in the Emergency Department, pt stable for discharge.
Occasional wrong word or 'sound a like' substitutions may have occurred due to the inherent limitations of voice recognition software. Read the chart carefully and recognize, using context, where substitutions have occurred.
*Critical Care Note
Total Time (30-74mins, 75-104mins- exclusive of procedures): Not Applicable
ED Attending Note
-
Portions of this chart may have been created with voice recognition software.� Occasional wrong word or��sound alike� substitutions may have occurred due to the inherent limitations of voice recognition software.
Discharge Plan
Departure
Patient Disposition: Home (Routine Discharge)
Date of Disposition: 09/19/23
Time of Disposition: 18:14
Patient with high blood pressure during this ER visit?: No
Discharge Problem:
Marli's syndrome
Instructions: Pericarditis, Adult (DC)
Prescriptions:
New
colchicine [Colcrys] 0.6 mg tablet
0.6 mg PO BID 21 Days Qty: 42 0RF
No Action
fluoxetine 20 mg tablet
40 mg PO DAILY
dextroamphetamine-amphetamine [Adderall XR] 30 mg Capsule,Extended Release 24hr
30 mg PO DAILY
cetirizine [Zyrtec] 10 mg Tablet
10 mg PO DAILY
fluticasone propionate 50 mcg/actuation [place],Suspension
1 spray INTRANASAL DAILY
vitamin D3-vitamin K2 (MK4) 1,000-100 unit-mcg Tablet
1 tab PO DAILY
ofloxacin 0.3 % Drops
4 drp OTIC (EAR) Q12H
Brilinta 90 mg Tablet
90 mg PO BID Qty: 60 0RF
atorvastatin 80 mg Tablet
80 mg PO QPM Qty: 30 0RF
metoprolol succinate 50 mg Tablet Extended Release 24 Hr
50 mg PO DAILY Qty: 30 0RF
aspirin [Children's Aspirin] 81 mg Tablet,Chewable
81 mg PO DAILY Qty: 30 0RF
Referrals:
Manda Reed PA-C [Family Provider] -
Activity Restrictions/Additional Instructions:
Please return for any worsening symptoms.
You may return at any time if you have further concerns.
Please follow up with your doctor at the first available appointment, preferably this week.
I started you on a medicine called colchicine which will help with the inflammation around your heart. Please talk to your toe lining closer whether or not to continue this.
Thank you for choosing [facility].
Interventions
Interventions:
*Risk Screen - Suicide Last Done: 09/19/23 16:00
*General Assessment Last Done: 09/19/23 16:00
*Neglect/Abuse Screening Last Done: 09/19/23 16:00
ED- Fall Risk Assessment Last Done: 09/19/23 16:32
*ED COVID-19 Vaccine History Last Done: 09/19/23 16:19
ED- Pulmonary Assessment Last Done: 09/19/23 16:31
ED- Cardiac Assessment Last Done: 09/19/23 16:31
Discharge Date and Time
Print Language: DANISH
[2023-09-19 16:42] LABS: % Basophils 0.5 % (0-2); % Eosinophils 1.5 % (0-6); % Immature Granulocytes 0.5 % (0-0.5); % Lymphocytes 19.5 % (20.5-51.1); % Monocytes 7.7 % (1.7-9.3); % Neutrophils 70.3 % (42.2-75.2); Absolute Basophils 0.1 10^3/uL (0-0.2); Absolute Eosinophils 0.2 10^3/uL (0-0.7); Absolute Immature Granulocytes 0.1 10^3/uL (0-0.05); Absolute Lymphocytes 2.8 10^3/uL (1.2-3.4); Absolute Monocytes 1.1 10^3/uL (0.1-0.6); Absolute Neutrophils 10.1 10^3/uL (1.4-6.5); Hemoglobin 14.7 g/dL (12.0-16.0); Mean Corpuscular Hgb 31.3 pg (27.0-31.0); Mean Corpuscular Volume 89.6 fL (81.0-99.0); Mean Platelet Volume 10.5 fL (7.4-10.4); Nucleated Red Blood Cells % 0 %; Platelet Count 331 10^3/uL (130-400); Red Blood Cell Count 4.69 10^6/uL (4.20-5.40); Red Cell Dist. Width 11.9 % (11.5-14.5); White Blood Cell Count 14.4 10^3/uL (4.8-10.8)
[2023-09-19] MEDS: COLCHICINE 0.599999999999999978 MG PO (16:51)
[2023-09-19 16:57] LABS: ALT (SGPT) 23 U/L (0-35); AST (SGOT) 25 U/L (14-36); Albumin 4.7 g/dl (3.5-5.0); Alkaline Phosphatase 105 U/L (38-126); Blood Urea Nitrogen 13 mg/dl (7-17); Calcium 10.4 mg/dl (8.4-10.2); Carbon Dioxide 22 mmol/L (22-30); Chloride 101 mmol/L (98-107); Estimated Creatinine Clearance > 125 ml/min; Glucose 87 mg/dl (70-99); Potassium 4.2 mmol/L (3.5-5.1); Sodium 137 mmol/L (135-145); Total Bilirubin 0.7 mg/dl (0.2-1.3); eGFR > 60.00
[2023-09-19 17:00] VITALS: BP 120/82
[2023-09-19 18:04] VITALS: BP 108/61
== END 2023-09-19 18:27 | disposition home or self-care (01) ==
LOC: EMR 15:50
PROVIDERS: EMERGENCY PHYSICIAN Student in an Organized Health Care Education/Training Program; FAMILY PHYSICIAN Student in an Organized Health Care Education/Training Program
DX: I24.1 Dressler's syndrome (principal)
CPT/HCPCS: 99284; 71046; 80053; 85025; 93005

== ENCOUNTER → 2023-10-09 12:55 | Outpatient (REF) | payer BC, SELFPAY | LOC: RCS 12:55 | PROVIDERS: ATTENDING PHYSICIAN Nurse Practitioner; FAMILY PHYSICIAN Student in an Organized Health Care Education/Training Program | DX: E78.00 Pure hypercholesterolemia, unspecified (principal); I25.10 Atherosclerotic heart disease of native coronary artery without angina pectoris; R06.83 Snoring; R07.89 Other chest pain | CPT/HCPCS: 93308; 93321; 93325 ==

== ENCOUNTER 2023-11-12 10:47 | Outpatient (RCR) | payer BC, SELFPAY | END 2023-11-12 23:59 | disposition home or self-care (01) | LOC: CRHB 10:47 | PROVIDERS: ATTENDING PHYSICIAN Internal Medicine Cardiovascular Disease | DX: I25.10 Atherosclerotic heart disease of native coronary artery without angina pectoris (principal); I25.2 Old myocardial infarction; Z95.5 Presence of coronary angioplasty implant and graft | CPT/HCPCS: 93797; 93798; G0422; G0423 ==

== ENCOUNTER 2023-11-19 13:44 | Outpatient (RCR) | payer BC, SELFPAY | END 2023-11-19 23:59 | disposition home or self-care (01) | LOC: CRHB 13:44 | PROVIDERS: ATTENDING PHYSICIAN Internal Medicine Cardiovascular Disease | DX: I25.10 Atherosclerotic heart disease of native coronary artery without angina pectoris (principal); Z95.5 Presence of coronary angioplasty implant and graft; I25.2 Old myocardial infarction | CPT/HCPCS: 93797; 93798 ==

== ENCOUNTER → 2023-12-19 12:00 | Outpatient (REF) | payer BC, SELFPAY | LOC: DHSLP 12:00 | PROVIDERS: ATTENDING PHYSICIAN Internal Medicine Critical Care Medicine; FAMILY PHYSICIAN Student in an Organized Health Care Education/Training Program | DX: G47.19 Other hypersomnia (principal); R06.83 Snoring | CPT/HCPCS: 95800 ==

== ENCOUNTER → 2024-03-22 09:15 | Outpatient (REF) | payer BC, SELFPAY | LOC: DHSLP 09:15 | PROVIDERS: ATTENDING PHYSICIAN Internal Medicine Critical Care Medicine; FAMILY PHYSICIAN Student in an Organized Health Care Education/Training Program | DX: G47.19 Other hypersomnia (principal); R06.83 Snoring; G47.53 Recurrent isolated sleep paralysis | CPT/HCPCS: 95810 ==

== ENCOUNTER → 2024-03-23 07:00 | Outpatient (REF) | payer BC, SELFPAY | LOC: DHSLP 07:00 | PROVIDERS: ATTENDING PHYSICIAN Internal Medicine Critical Care Medicine; FAMILY PHYSICIAN Student in an Organized Health Care Education/Training Program | DX: G47.11 Idiopathic hypersomnia with long sleep time (principal) | CPT/HCPCS: 95805 ==

== ENCOUNTER → 2024-07-14 14:26 | Outpatient (REF) | payer BC, SELFPAY | LOC: WDC 14:26 | PROVIDERS: ATTENDING PHYSICIAN Nurse Practitioner Adult Health | DX: Z12.31 Encounter for screening mammogram for malignant neoplasm of breast (principal); R92.8 Other abnormal and inconclusive findings on diagnostic imaging of breast | CPT/HCPCS: 76642; 77063; 77067 ==

== ENCOUNTER 2024-07-23 14:52 | Emergency (ER) | payer BC, SELFPAY ==
[2024-07-23] VITALS (9 sets, daily range): BP systolic 83–142; BP diastolic 64–95
[2024-07-23 15:11] LABS: % Basophils 0.6 % (0-2); % Eosinophils 2.1 % (0-6); % Immature Granulocytes 0.4 % (0-0.5); % Lymphocytes 26.2 % (20.5-51.1); % Monocytes 8.3 % (1.7-9.3); % Neutrophils 62.4 % (42.2-75.2); Absolute Basophils 0.1 10^3/uL (0-0.2); Absolute Eosinophils 0.3 10^3/uL (0-0.7); Absolute Immature Granulocytes 0.1 10^3/uL (0-0.05); Absolute Lymphocytes 3.6 10^3/uL (1.2-3.4); Absolute Monocytes 1.1 10^3/uL (0.1-0.6); Absolute Neutrophils 8.5 10^3/uL (1.4-6.5); Hematocrit 42.4 % (37.0-47.0); Hemoglobin 14.4 g/dL (12.0-16.0); Mean Corpuscular Hgb 31.2 pg (27.0-31.0); Mean Corpuscular Volume 91.8 fL (81.0-99.0); Mean Platelet Volume 10.3 fL (7.4-10.4); Nucleated Red Blood Cells % 0 %; Platelet Count 361 10^3/uL (130-400); Red Blood Cell Count 4.62 10^6/uL (4.20-5.40); Red Cell Dist. Width 12.2 % (11.5-14.5); White Blood Cell Count 13.6 10^3/uL (4.8-10.8)
[2024-07-23 15:25] LABS: HCG, Serum Qualitative Screen Negative
[2024-07-23 15:33] LABS: Troponin I < 0.012 ng/ml
[2024-07-23 15:34] LABS: ALT (SGPT) 41 U/L (0-35); AST (SGOT) 29 U/L (14-36); Albumin 4.6 g/dl (3.5-5.0); Alkaline Phosphatase 124 U/L (38-126); Blood Urea Nitrogen 13 mg/dl (7-17); Calcium 9.7 mg/dl (8.4-10.2); Carbon Dioxide 28 mmol/L (22-30); Chloride 103 mmol/L (98-107); Glucose 92 mg/dl (70-99); Potassium 4.3 mmol/L (3.5-5.1); Sodium 141 mmol/L (135-145); Total Bilirubin 0.7 mg/dl (0.2-1.3); Total Protein 7.5 g/dl (6.3-8.2); eGFR > 60.00
--- NOTE | 2024-07-23 16:24 | ED.GENMED ---
History of Present Illness
General
Chief Complaint: Chest Pain
Time Seen by Provider: 07/23/24 16:15
History of Present Illness
History of Present Illness:
Patient is a 44-year-old woman with history of prior NSTEMI status post stent with Dr. Nava presenting to the emergency department with chest pain. Patient states that around 11 AM she developed that was midsternal. She states that it felt
similar to when she had her prior NSTEMI. However when she had the NSTEMI she was diaphoretic and had a tight band sensation around her chest along with the heartburn. The only symptom she is having today is heartburn. It has been constant since
11 AM. It is sharp with occasional burning. It is not pleuritic. It is not positional. It is not exertional. She has been taking her medications as prescribed. She states that there is no plans for any further interventions. Denies any leg
swelling hemoptysis history of blood clot. She does note that she has had a cough.
Past History
Past History
ED Past Medical History: Asthma (Allergy and sport induced), CAD and Other (Enlarged thyroid, Vertigo)
ED Past Surgical History: Tonsilectomy (and adenoids, ) and Other (Myringotomy as child)
Social History
Tobacco: Non-smoker
Alcohol: Occasional
Personal:
Living: with family
Phy Exam
Physical Exam
Physical Exam:
GENERAL: in no acute distress
HEENT: normocephalic, extraocular movements intact, moist oral mucosa
NECK: normal inspection
RESPIRATORY: no respiratory distress, clear to auscultation bilaterally
CARDIOVASCULAR: regular rate and rhythm
ABDOMEN/: soft, non-distended, non-tender to palpation, no rebound or guarding
EXTREMITIES: non-tender, no edema/swelling
NEUROLOGIC: awake and alert, moves all extremities
SKIN: warm
Scores
Heart Score for Chest Pain Patients
STEMI patient?: No
History: Slightly or Non-Suspicious
ECG: Normal
Age: </= 45 years
Risk Factors: >/= 3 Risk Factors or History of CAD
Troponin: </= Normal Limit
Heart Score for Chest Pain Patients: 2
Heart Score Risk: 2.5% MACE over next 6 weeks
Course
Orders/Labs/Results
Orders:
Orders
07/23/24 14:52
Electrocardiogram (*1) Urgent
Reason for Study: Chest Pain
EKG- Treatment ONCE
07/23/24 15:00
Test Result ONCE
07/23/24 15:05
Complete Blood Count/With Diff Urgent
Comprehensive Metabolic Panel Urgent
HCG, Serum Qualitative Screen Urgent
Troponin I Urgent
07/23/24 16:23
EKG- Treatment ONCE
Mag Hydrox/Al Hydrox/Simeth [Maalox] 30 ml Phenobarb/Hyoscy/Atropine/Scop [] 10 ml Viscous Lidocaine 2% [Xylocaine Viscous Cup] 10 ml PO NOW
07/23/24 16:26
CR Chest - 2 Views Urgent
Comment:
Reason For Exam: chest pain
07/23/24 16:40
Mag Hydrox/Al Hydrox/Simeth [Maalox] 30 ml .ROUTE .STK-MED ONE
Phenobarb/Hyoscy/Atropine/Scop [] 10 ml .ROUTE .STK-MED ONE
Viscous Lidocaine 2% [Xylocaine Viscous Cup] 15 ml .ROUTE .STK-MED ONE
07/23/24 18:00
Electrocardiogram (*1) Urgent
Reason for Study: Chest Pain
07/23/24 18:17
Troponin I Urgent
07/23/24 20:19
Ketorolac [Toradol] 15 mg IV NOW STA
07/23/24 20:25
Ketorolac [Toradol] 15 mg IM NOW STA
07/23/24 20:40
Metoprolol [Lopressor] 50 mg PO NOW STA
07/23/24 20:45
Electrocardiogram (*1) Urgent
Reason for Study: Chest Pain
07/23/24 20:46
Metoprolol Xl [Toprol Xl] 50 mg PO NOW STA
07/23/24 21:04
Troponin I Urgent
07/23/24 21:56
EKG- Treatment ONCE
07/23/24 21:57
Electrocardiogram (*1) Urgent
Reason for Study: Chest Pain
Abnormal Lab Results
07/23/24
15:05
WBC 13.6 H 10^3/uL
(4.8-10.8)
MCH 31.2 H pg
(27.0-31.0)
Abs Immat Gran (auto) 0.1 H 10^3/uL
(0-0.05)
Absolute Neuts (auto) 8.5 H 10^3/uL
(1.4-6.5)
Absolute Lymphs (auto) 3.6 H 10^3/uL
(1.2-3.4)
Absolute Monos (auto) 1.1 H 10^3/uL
(0.1-0.6)
ALT 41 H U/L
(0-35)
07/23/24 15:05
07/23/24 15:05
Vital Signs
Initial and Last Documented VS:
Initial Vital Signs
Temp Pulse Resp BP Pulse Ox
98.4 F 87 18 142/95 100
07/23/24 14:56 07/23/24 14:56 07/23/24 14:56 07/23/24 14:56 07/23/24 14:56
Last Documented Vital Signs
Temp Pulse Resp BP Pulse Ox
98.4 F 76 15 121/95 97
07/23/24 14:56 07/23/24 22:30 07/23/24 22:30 07/23/24 22:09 07/23/24 22:30
MDM/Problems Addressed
Differential Diagnosis Includes:
Patient is a 44-year-old woman with history of prior NSTEMI with stent presenting to the emergency department with chest pain that she describes as heartburn. Vitals and exam is reassuring. Differential consists of atypical ACS esophagitis versus
pneumonia. Blood work obtained prior to my evaluation does show slight leukocytosis. She does have a cough. Will obtain x-ray to further evaluate. Initial troponin is negative. Will obtain delta. No EKG per my interpretation normal sinus
rhythm with no ST changes. Will give patient GI cocktail in the interim to see if symptoms improve.
*Critical Care Note
Total Time (30-74mins, 75-104mins- exclusive of procedures): Not Applicable
Update Note
Update Note:
On reevaluation patient states that the heartburn feeling has resolved however she now describes the pain as pressure. Delta troponin negative. EKG nonischemic. Given ongoing chest pain I did discuss with on-call cardiology. They do believe that
it could be related to her scad. Recommend increasing metoprolol to 50 mg. Recommended giving first dose here to evaluate symptom improvement.
I did discuss this with patient. After shared decision making we will give the metoprolol and resend third troponin as patient is concerned. If troponin is flat and symptoms improved patient is amenable to going home. However if symptoms persist
patient will to be admitted. Patient signed out to oncoming attending pending troponin and response to beta-blockade
ED Attending Note
-
Portions of this chart may have been created with voice recognition software.� Occasional wrong word or��sound alike� substitutions may have occurred due to the inherent limitations of voice recognition software.
Discharge Plan
Departure
Patient Disposition: Home (Routine Discharge)
Date of Disposition: 07/23/24
Time of Disposition: 22:55
Patient with high blood pressure during this ER visit?: No
Discharge Problem:
Chest pain
Instructions: Chest Pain CBC Follow Up
Prescriptions:
No Action
fluoxetine 20 mg tablet
40 mg PO DAILY
dextroamphetamine-amphetamine [Adderall XR] 30 mg Capsule,Extended Release 24hr
30 mg PO DAILY
cetirizine [Zyrtec] 10 mg Tablet
10 mg PO DAILY
fluticasone propionate 50 mcg/actuation [place],Suspension
1 spray INTRANASAL DAILY
vitamin D3-vitamin K2 (MK4) 1,000-100 unit-mcg Tablet
1 tab PO DAILY
ofloxacin 0.3 % Drops
4 drp OTIC (EAR) Q12H
Brilinta 90 mg Tablet
90 mg PO BID Qty: 60 0RF
atorvastatin 80 mg Tablet
80 mg PO QPM Qty: 30 0RF
metoprolol succinate 50 mg Tablet Extended Release 24 Hr
50 mg PO DAILY Qty: 30 0RF
aspirin [Children's Aspirin] 81 mg Tablet,Chewable
81 mg PO DAILY Qty: 30 0RF
colchicine [Colcrys] 0.6 mg tablet
0.6 mg PO BID 21 Days Qty: 42 0RF
Referrals:
UNKNOWN - PT DOES,NOT KNOW [Family Provider] -
Activity Restrictions/Additional Instructions:
You were evaluated in the Emergency Department today for chest pain. Your evaluation has shown no signs of medical conditions requiring emergent intervention at this time, however we recommend that you follow up with your primary care physician or
your full service vending driver as soon as possible for further testing as an outpatient. We did increase your metoprolol to 50 mg.
Please schedule an appointment for follow up with your primary care physician as soon as possible.
Return to the Emergency Department if you experience worsening or uncontrolled chest pain, shortness of breath, light headedness, feeling faint, nausea, vomiting, or any other concerning symptoms.
Thank you for choosing us for your care.
Interventions
Interventions:
*Risk Screen - Suicide Last Done: 07/23/24 14:56
*General Assessment Last Done: 07/23/24 14:56
*Neglect/Abuse Screening Last Done: 07/23/24 14:56
*ED- Fall Risk Assessment Last Done: 07/23/24 22:35
*ED COVID-19 Vaccine History Last Done: 07/23/24 22:35
*Nursing Disposition Last Done: 07/23/24 23:02
ED- Cardiac Assessment Last Done: 07/23/24 16:53
Discharge Date and Time
Discharge Date/Time: 07/23/24 23:04
Print Language: PUERTO RICAN
[2024-07-23] MEDS: MAALOX 50 PO (16:42)
[2024-07-23 18:54] LABS: Troponin I < 0.012 ng/ml
[2024-07-23] MEDS: TORADOL 15 MG IM (20:27)
[2024-07-23 21:37] LABS: Troponin I < 0.012 ng/ml
[2024-07-23] MEDS: TOPROL XL 50 MG PO (22:09)
== END 2024-07-23 23:04 | disposition home or self-care (01) ==
LOC: EMR 14:52
PROVIDERS: EMERGENCY PHYSICIAN Student in an Organized Health Care Education/Training Program
DX: R07.89 Other chest pain (principal); I25.2 Old myocardial infarction
CPT/HCPCS: 99285; 96372; 71046; 80053; 84484; 84703; 85025; 93005

== ENCOUNTER → 2024-07-29 14:18 | Outpatient (REF) | payer BC, SELFPAY | LOC: RCS 14:18 | PROVIDERS: ATTENDING PHYSICIAN Internal Medicine Cardiovascular Disease; FAMILY PHYSICIAN Student in an Organized Health Care Education/Training Program | DX: R07.89 Other chest pain (principal) | CPT/HCPCS: 93017; 93350 ==

== ENCOUNTER 2024-07-30 13:18 | Observation (INO) | payer BC, SELFPAY ==
[2024-07-30] VITALS (13 sets, daily range): BP systolic 89–137; BP diastolic 69–98; BMI 40.2
--- NOTE | 2024-07-30 09:41 | ED.GENMED ---
History of Present Illness
General
Chief Complaint: Cardiac Symptoms
Source: patient
Exam Limitations: none
Time Seen by Provider: 07/30/24 09:32
Nursing documentation reviewed up to this point in time: agreed with
History of Present Illness
History of Present Illness:
Patient is a 44-year-old with past medical history of stents sent by cardiology for intermittent chest pain this week and for cath. Patient has noted some intermittent chest throughout the week worse with exertion. mild dull discomfort now. Pt has
no shortness of breath. She notes that she did not take her Brilinta or aspirin yet. In addition patient had a stress echo this week however had discomfort during the test which is why catheterization was recommended
Past History
Past History
ED Past Medical History: Asthma (Allergy and sport induced), CAD and Other (Enlarged thyroid, Vertigo)
ED Past Surgical History: Tonsilectomy (and adenoids, ) and Other (Myringotomy as child)
Social History
Tobacco: Non-smoker
Alcohol: Occasional
Personal:
Living: with family
Review of Systems
Review of Systems
Allergies reviewed?: Yes
All Other Systems: ROS reviewed and negative except as documented in HPI and ROS
Constitutional: Reports no symptoms
Respiratory: Denies trouble breathing
Cardiac: Reports chest pain; Denies palpitations
ABD/GI: Reports no symptoms
: Reports no symptoms
Musculoskeletal: Reports no symptoms
Skin: Reports no symptoms
Neurological: Reports no symptoms
Psychiatric: Reports no symptoms
Phy Exam
General Physical Exam
General Presentation: no apparent distress
General age: appears stated age
General Skin: warm and dry
General Habitus: normal
General Mental: alert
General Hydration: appears well hydrated
Cardiovascular Exam
Cardiovascular Exam: regular rate/rhythm
Pulmonary Exam
Pulmonary Exam: lungs clear and no respiratory distress
Neurological Exam
Neurological Exam: alert and oriented x3
Musculoskeletal Exam
Musculoskeletal Exam: full ROM
Skin Exam
Skin Exam: normal color
Psychiatric Exam
Psychiatric Exam: normal mood/affect
Course
Orders/Labs/Results
Orders:
Orders
07/30/24 09:43
Electrocardiogram (*1) Stat
Reason for Study: Other
Other Reason for Exam: chest pain
Cardiac Monitoring- Treatment ONCE
EKG- Treatment ONCE
IV Insert/Care/Rem.- Treatment PRN
07/30/24 09:51
Type+Screen Urgent
Complete Blood Count/With Diff Urgent
Sed Rate [Erythrocyte Sed Rate] Urgent
Troponin I Urgent
07/30/24 Lunch
NPO
Allow oral meds: Yes
Allow clear liquids: No
07/30/24 10:04
CRP [C-Reactive Protein] Urgent
07/30/24 10:36
ABO2 Urgent
BBK Wristband Number:
Associate notified that ABO2 has been ordered: ASHA-ER
Date: 07/30/24
Time: 10:13
Cigarette Roller ID: [id number]
07/30/24 10:44
Basic Metabolic Panel Urgent
07/30/24 12:23
Admit/Transfer Patient As Directed
Co-Sign Provider:
Level of Care: Observation services
Assign to:: IVU
Physician / Group: Dr. Rodriguez
Diagnosis: chest pressure
PRN Pain Medication Management As Directed
May give lesser potent ordered pain med per pt: Yes
preference::
Protocol:: Medication orders for pain may be administered in a
manner that supports deferring to patient preference
when the pt is:
-Requesting an ordered lesser potent pain medication.
Least to most potent pain medications are defined as:
acetaminophen < NSAID < tramadol < opioids (morphine,
oxycodone, hydromorphone).
- Requesting a lesser dose of the same medication IF
ORDERED.
- Requesting a less intrusive route of administration
if both routes are prescribed by the provider (PO <
IV).
07/30/24 17:44
VTE Contraindication Routine
VTE Mechanical Device Contraindication: Medical Contraindication
Pharmocologic Contraindication: Medical Contraindication
Comment: she is on ASA and Brilinta
Vital Signs As Directed
Frequency: Per unit guidelines
07/30/24 18:00
Atorvastatin [Lipitor] 80 mg PO QPM
07/30/24 20:00
Ticagrelor [Brilinta] 90 mg PO BID
07/31/24 08:00
Aspirin Chewable [Low Strength Aspirin] 81 mg PO DAILY
Metoprolol Xl [Toprol Xl] 50 mg PO DAILY
Abnormal Lab Results
07/30/24
09:51
MPV 10.5 H fL
(7.4-10.4)
Abs Immat Gran (auto) 0.1 H 10^3/uL
(0-0.05)
Absolute Neuts (auto) 7.0 H 10^3/uL
(1.4-6.5)
Absolute Monos (auto) 0.8 H 10^3/uL
(0.1-0.6)
07/30/24 09:51
07/30/24 10:44
Vital Signs
Initial and Last Documented VS:
Initial Vital Signs
Temp Pulse Resp BP Pulse Ox
98.1 F 96 16 137/98 97
07/30/24 09:23 07/30/24 09:23 07/30/24 09:23 07/30/24 09:23 07/30/24 09:23
Last Documented Vital Signs
Temp Pulse Resp BP Pulse Ox
98.3 F 96 20 113/69 97
07/30/24 19:15 07/30/24 19:45 07/30/24 19:15 07/30/24 19:00 07/30/24 19:15
MDM/Problems Addressed
Differential Diagnosis Includes:
not limited to: ACS
MDM/Problems Addressed:
Patient is a 44-year-old female with history of CAD, stents sent by cardiology for cath. Patient has had intermittent chest pain this week. Patient presents awake alert no acute distress she did take a dose of her aspirin and Brilinta today
because she did not take it yet today. Patient was evaluated by cardiology nurse practitioner and refrigeration operator. 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 Her cardiac troponin is negative as requested by cardiology
inflammatory markers added on and negative.
*Pulse Oximetry
Patient hypoxic: no
*EKG
Interpretation: normal
Comparison EKG: no changes
Heart Rate: 80
Rate: normal
Rhythm: sinus
Ischemia: no ischemia
*Critical Care Note
Total Time (30-74mins, 75-104mins- exclusive of procedures): Not Applicable
Patient Management
Discussion with other providers: Mast Maker (cardiology Michael )
ED Attending Note
-
Portions of this chart may have been created with voice recognition software.� Occasional wrong word or��sound alike� substitutions may have occurred due to the inherent limitations of voice recognition software.
Discharge Plan
Departure
Patient Disposition: Admit
Date of Disposition: 07/30/24
Time of Disposition: 12:54
Admit to: IVU
Admit to doctor: Michael
Presentation/result/management discussed w/ accepting MD/DO: cardiology
Patient with high blood pressure during this ER visit?: Yes
Condition: Fair
Covid-19: Not Applicable
Discharge Problem:
Chest pain
Interventions
Interventions:
*Risk Screen - Suicide Last Done: 07/30/24 09:27
*General Assessment Last Done: 07/30/24 09:27
*Neglect/Abuse Screening Last Done: 07/30/24 09:27
*ED- Fall Risk Assessment Last Done: 07/30/24 09:28
*ED COVID-19 Vaccine History Last Done: 07/30/24 09:28
*Nursing Disposition Last Done: 07/30/24 15:41
ED- Pulmonary Assessment Last Done: 07/30/24 09:47
ED- Cardiac Assessment Last Done: 07/30/24 09:47
Discharge Date and Time
Discharge Date/Time: 07/30/24 15:25
[2024-07-30 10:10] LABS: % Basophils 0.6 % (0-2); % Eosinophils 2.8 % (0-6); % Immature Granulocytes 0.5 % (0-0.5); % Lymphocytes 24.7 % (20.5-51.1); % Monocytes 7.2 % (1.7-9.3); % Neutrophils 64.2 % (42.2-75.2); Absolute Basophils 0.1 10^3/uL (0-0.2); Absolute Eosinophils 0.3 10^3/uL (0-0.7); Absolute Immature Granulocytes 0.1 10^3/uL (0-0.05); Absolute Lymphocytes 2.7 10^3/uL (1.2-3.4); Absolute Monocytes 0.8 10^3/uL (0.1-0.6); Hematocrit 39.4 % (37.0-47.0); Hemoglobin 13.4 g/dL (12.0-16.0); Mean Corpuscular Hgb 30.9 pg (27.0-31.0); Mean Platelet Volume 10.5 fL (7.4-10.4); Nucleated Red Blood Cells % 0 %; Platelet Count 347 10^3/uL (130-400); Red Blood Cell Count 4.33 10^6/uL (4.20-5.40); Red Cell Dist. Width 11.9 % (11.5-14.5); White Blood Cell Count 10.8 10^3/uL (4.8-10.8)
[2024-07-30 10:35] LABS: Troponin I < 0.012 ng/ml
[2024-07-30 11:36] LABS: Blood Urea Nitrogen 12 mg/dl (7-17); Estimated Creatinine Clearance > 125 ml/min; Glucose 97 mg/dl (70-99); eGFR > 60.00
[2024-07-30 11:37] LABS: Calcium 9.3 mg/dl (8.4-10.2); Carbon Dioxide 25 mmol/L (22-30); Chloride 106 mmol/L (98-107); Sodium 140 mmol/L (135-145)
--- NOTE | 2024-07-30 11:42 | HPS.HSE ---
Addendum entered and electronically signed by Dewey Rodriguez MD 07/30/24 15:01:
I saw and examined the patient.
The GROCERY CADDY's note was reviewed and I agree with the note.
Comment:
44-year-old female with history of SCAD in September 2023 s/p SANGITA x2 who presents with recurrent chest pain. She is a patient of Dr. Nava whom she saw on 07/27 for chest pain that felt similar to her prior SCAD and is worse with exertion. She was sent
for a stress echocardiogram which she got yesterday. The test was stopped early due to escalating chest pain (went from 06/21 to 09/21). She only reached 75% of maximum predicted heart rate so test was technically nondiagnostic though there was no
ECG or echocardiographic evidence of ischemia at the achieved workload. Due to ongoing chest pain, she was referred to the ER for cardiac catheterization. Troponins here are undetectable and ECG shows normal sinus rhythm with no evidence of
ischemia. CRP/ESR WNL.
Physical exam: Well-appearing female in no distress, regular rate and rhythm, no murmurs, no lower extremity edema, clear lungs.
For her recurrent chest pain with history of SCAD, we will plan to rule out recurrent obstructive coronary artery disease with left heart catheterization. Continue DAPT and beta-sandi for history of SCAD. Continue statin and Zetia. No evidence
of pericarditis by labs or echo. Could consider outpatient PET to look for microvascular disease if cath is negative.
Original Note:
Family Physician
-
Family Physician: Manda Reed PA-C
Chief Complaint
-
chest pressure
History of Present Illness
Mrs. Bee is a 44 yo female with [place] from SCAD 09/15/2023 s/p overlapping SANGITA OM2, HLD, obesity and ADHD, who presents to the ER with c/o chest pressure for 1 week. She was seen by Dr. Nava in the office 07/27/24 and a stress echo and labs were
ordered. Stress echo was completed 07/29/24, 7.5 METS/75% of MPHR test was terminated due to escalating chest pain, no EKG or echo evidence of ischemia at the workload achieved. Test was reviewed by Dr. Nava today and since she continues to have
chest pressure, he recommended she go to the ER for further evaluation. Dr. Nava recommends a cardiac catheterization and she is agreeable with this plan. Currently she has 3-4/10 chest pressure. She did not take her AM meds today and will
receive ASA and Brilinta now. Outpatient D-dimer 07/28/24 was negative.
Medical History
Past Medical History
Past Medical History: Reports Other (as above)
Past Surgical History: Reports Cardiac (cath 09/15/23 SANGITA x 2 OM2) and Tonsilectomy
Social History
Tobacco: Non-smoker
Alcohol: Occasional
Personal:
Living: With Family
Employment: Employed
Family History
Family History: Not pertinent
Allergies / Home Medications
Allergies reflects when Allergies were last updated in [facility].
Home Medications with original date entered in [facility]
Allergy/Medication List:
NKDA
meds:
Arnuity Ellipta(Fluticasone Furoate) 100 MCG/ACT Aerosol Powder Breath Activated 1 puff Inhalation Once a day
Aspirin Adult Low Dose(Aspirin) 81 MG Tablet Delayed Release 1 tablet Orally Once a day
Atomoxetine HCl 60 MG Capsule TAKE 1 CAPSULE BY MOUTH IN THE MORNING
Atorvastatin Calcium 80 MG Tablet 1 tablet Orally Once a day
Brilinta(Ticagrelor) 90 MG Tablet 1 tablet Orally Twice a day , stop date 10/11/2024
Ezetimibe 10 MG Tablet TAKE 1 TABLET BY MOUTH EVERY DAY
FLUoxetine HCl 20 MG Tablet TAKE 2 TABLETS BY MOUTH ONCE EVERY DAY FOR 90 DAYS
Metoprolol Succinate ER 50 MG Tablet Extended Release 24 Hour 1 tablet Orally Once a day
Protonix(Pantoprazole Sodium) 40 MG Tablet Delayed Release 1 tablet Orally Once a day
Wegovy(Semaglutide-Weight Management) 0.5 MG/0.5ML Solution Auto-injector 0.5 mL Subcutaneous once weekly�
Review of Systems
-
History Source: Patient
A 12 point ROS was completed and negative except as noted: Yes
Physical Exam
Vital Signs
Vital Signs
Temp Pulse Resp BP Pulse Ox
98.1 F 74 12 108/70 98
07/30/24 09:23 07/30/24 11:15 07/30/24 11:15 07/30/24 11:00 07/30/24 11:15
Physical Exam
General: Well Developed, Well Nourished, No Apparent Distress and Obese
HEENT: NormoCephalic, Anicteric and Moist mucous membranes
Respiratory: Clear and Non Labored Respirations
Cardiac: S1/S2 and Regular Rhythm
Breast: Deferred by me
GI: Soft, Non Tender, Non Distended and Normal Bowel Sounds
Rectal: Deferred by Provider
Genito-urinary: Deferred by me
Musculoskeletal: No Clubbing, No Cyanosis and No Edema
Skin: Warm and Dry
Neuro: AO x 3
Psych: Calm
Laboratory Results
-
07/30/24 09:51
07/30/24 10:44
Laboratory Results
Total Bilirubin Cancelled 07/30/24 10:44
AST Cancelled 07/30/24 10:44
ALT Cancelled 07/30/24 10:44
Alkaline Phosphatase Cancelled 07/30/24 10:44
Troponin I < 0.012 ng/ml 07/30/24 09:51
Data Reviewed
-
Medical Tests (Nuc Med, Echo, EKG etc): Report Reviewed by me (Stress echo was completed 07/29/24, 7.5 METS/75% of MPHR test was terminated due to escalating chest pain, no EKG or echo evidence of ischemia at the workload achieved)
Lab Data: Labs Reviewed by me
Old Records: Reviewed
Impression/Plan
-
IMPRESSION/PLAN:
Chest pressure - constant since last week.
- Stress echo was completed 07/29/24, 7.5 METS/75% of MPHR test was terminated due to escalating chest pain, no EKG or echo evidence of ischemia at the workload achieved.
- continued chest pressure and Dr. Nava recommends cardiac cath today.
- continue DAPT ASA/Brilinta.
SCAD - 09/15/23 cath with overlapping SANGITA to OM2.
- DAPT ASA/Brilinta, continue.
HLD - stable on Lipitor and Zetia, continue.
- LDL 53 03/2024.
Obesity - on Wegovy per PCP.
[2024-07-30 11:58] LABS: Erythrocyte Sed Rate 2 mm/hour (0-20)
--- NOTE | 2024-07-30 16:52 | ITS.CL.PN ---
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
Procedure
Procedure Note:
CARDIAC CATHETERIZATION REPORT
Date of Procedure: 07/30/2024
Referring: Dr. Dominik Rodriguez MD
Indication: Unstable angina
PROCEDURE(S)
1. left heart catheterization
2. coronary angiography
ACCESS: 6F right radial artery (closure: radial band)
CATHETERS
1. 6F JR4
2. 6F JL3.5
MODERATE SEDATION: 25 minutes of moderate sedation was utilized. An independent faculty i on call medical assistant was present to assist with and help manage the patient's level of consciousness and physiologic status.
HEMODYNAMIC DATA
LV 109/7 (EDP 13) mmHg
AO 109/86 (mean 97) mmHg
CORONARY ANGIOGRAPHY
Dominance: Right
LM: Large, normal
LAD: Large vessel giving rise to several small diagonal branches. There is no coronary artery disease.
LCx: Large vessel giving rise to a large branching OM1 and moderate caliber branching OM2. There is a widely patent stent in the distal OM1. There are otherwise trivial luminal irregularities only.
RCA: Moderate caliber vessel giving rise to a moderate caliber RPDA and small RPL branch. There is no coronary artery disease.
RADIATION: dose 309 mGy; DAP 15.8 Gy*cm2; fluoroscopy time 3.4 min
CONCLUSIONS
1. Nonobstructive coronary artery disease in a right dominant system
2. Normal LV filling pressure and no aortic stenosis
RECOMMENDATIONS
1. workup and treatment of ANOCA
2. aggressive secondary prevention of coronary artery disease
Copy to: Dr. Kee Nava MD (protective signal superintendent); CHRISTOPHER Lynn (PCP)
Signed: Fco Prince MD, PhD
--- NOTE | 2024-07-30 17:06 | W.DS.TRANS ---
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
-
Discharge Instructions:
Discharge Diagnosis/Procedures Chest pain
Procedure: Cardiac catheterization 07/30/2024
Diet Low Cholesterol
Activity No strenuous activity
Additional Activity See attached instructions
Driving Restrictions No driving for 24 hours
Bathing Restrictions None
Instructions:
Stand-Alone Forms: DC Instructions- Cath/EP Lab
Changes to Home Medications: No
Discharge Medications:
DC Medications w/original date entered in [facility]
cetirizine 10 mg tablet (Zyrtec) 10 mg PO DAILY Allergies 09/15/23
fluoxetine 20 mg tablet 40 mg PO DAILY Depression 09/15/23
aspirin 81 mg chewable tablet (Children's Aspirin) 81 mg PO DAILY #30 tabs 09/17/23
atorvastatin 80 mg tablet 80 mg PO QPM #30 tabs 09/17/23
metoprolol succinate 50 mg tablet,extended release 24 hr 50 mg PO DAILY #30 tabs 09/17/23
ticagrelor 90 mg tablet (Brilinta) 90 mg PO BID #60 tabs 09/17/23
atomoxetine 60 mg capsule 60 mg PO DAILY 07/30/24
budesonide-formoterol HFA 80 mcg-4.5 mcg/actuation aerosol inhaler (Symbicort) 1 inh inhalation R BID 07/30/24
ezetimibe 10 mg tablet (Zetia) 10 mg PO QPM 07/30/24
pantoprazole 40 mg tablet,delayed release (Protonix) 40 mg PO DAILY 07/30/24
semaglutide (weight loss) 0.5 mg/0.5 mL subcutaneous pen injector (Wegovy) 0.5 mg SC [place] 07/30/24
Home Medication Changes
Pending Results: No
--- NOTE | 2024-07-30 17:08 | PTCARENOTE ---
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 AOx3, no complaints of pain or discomfort. right radial site CDI. educated on restrictions. oriented to room and unit. Call ayala within reach.
[2024-07-30] MEDS: LIPITOR 80 MG PO (18:04)
--- NOTE | 2024-07-30 19:34 | PTCARENOTE ---
Assumed care of pt from prev nsg shift; Pt AAOx3 w/no c/o CP or SOB; VS stable w/HR in the 90's-100's & BP 113/69. Pt w/R radial band in place, this RN removed last 3cc of air at 1930. Band to come off shortly & pt to be D/C'd to home.
--- NOTE | 2024-07-30 20:12 | PTCARENOTE ---
Pt's R Radial band D/C'd; No signs or symptoms of bleeding or hematoma. Sterile dressing placed. Pt's IV line & surveillance system monitor D/C'd. D/C instructions discussed w/pt. Pt escorted out by this RN w/spouse driving pt home.
== END 2024-07-30 20:15 | disposition home or self-care (01) ==
LOC: IVU 13:18
PROVIDERS: Nurse Practitioner; Student in an Organized Health Care Education/Training Program; ADMITTING PHYSICIAN Student in an Organized Health Care Education/Training Program; EMERGENCY PHYSICIAN Emergency Medicine; FAMILY PHYSICIAN Student in an Organized Health Care Education/Training Program
PROC: B2111ZZ Fluoroscopy of Multiple Coronary Arteries using Low Osmolar Contrast (ICD-10-PCS; 2024-07-30)
PROC: 4A023N7 Measurement of Cardiac Sampling and Pressure, Left Heart, Percutaneous Approach (ICD-10-PCS; 2024-07-30)
DX: I25.110 Atherosclerotic heart disease of native coronary artery with unstable angina pectoris (principal); R07.9 Chest pain, unspecified; Z79.02 Long term (current) use of antithrombotics/antiplatelets; E78.5 Hyperlipidemia, unspecified; Z79.899 Other long term (current) drug therapy; E66.9 Obesity, unspecified; Z68.41 Body mass index [BMI] 40.0-44.9, adult; Z79.82 Long term (current) use of aspirin
CPT/HCPCS: 80048; 84484; 85025; 85652; 86140; 86850; 86900; 86901; 93005; 93458; 99152; 99153; 99285; C1894; G0378; Q9967

== ENCOUNTER 2025-02-02 18:56 | Emergency (ER) | payer BC, SELFPAY ==
[2025-02-02 18:58] VITALS: BP 160/103
[2025-02-02 19:30] LABS: Hematocrit 43.9 % (37.0-47.0); Hemoglobin 14.3 g/dL (12.0-16.0); Mean Corp Hgb Conc. 32.6 g/dL (33.0-37.0); Mean Corpuscular Volume 95.9 fL (81.0-99.0); Nucleated Red Blood Cells % 0 %; Platelet Count 356 10^3/uL (130-400); Red Cell Dist. Width 11.9 % (11.5-14.5)
[2025-02-02 19:40] LABS: INR 0.89; PT 12.5 Sec (11.4-14.6)
[2025-02-02 19:55] LABS: ALT (SGPT) 39 U/L (0-35); AST (SGOT) 31 U/L (14-36); Albumin 4.3 g/dl (3.5-5.0); Alkaline Phosphatase 97 U/L (38-126); Blood Urea Nitrogen 12 mg/dl (7-17); Calcium 9.5 mg/dl (8.4-10.2); Carbon Dioxide 29 mmol/L (22-30); Chloride 104 mmol/L (98-107); Glucose 95 mg/dl (70-99); Potassium 4.2 mmol/L (3.5-5.1); Sodium 139 mmol/L (135-145); Total Protein 7.2 g/dl (6.3-8.2); eGFR > 60.00
[2025-02-02 20:06] LABS: Troponin I < 0.012 ng/ml
[2025-02-02 20:47] VITALS: BP 134/90
[2025-02-02 20:49] VITALS: BP 134/90
[2025-02-02 20:52] VITALS: BMI 42.2
[2025-02-02 21:00] VITALS: BP 131/83
--- NOTE | 2025-02-02 21:03 | ED.GENMED ---
History of Present Illness
General
Chief Complaint: Chest Pain
Source: patient and records
Exam Limitations: none
Time Seen by Provider: 02/02/25 20:46
Nursing documentation reviewed up to this point in time: agreed with
History of Present Illness
History of Present Illness:
Note:
CHIEF COMPLAINT(S)
Chest pain and shortness of breath.
HISTORY OF PRESENT ILLNESS
The patient is a 44-year-old female with a history of a previous myocardial infarction who presents with chest pain and shortness of breath. She reports the onset of symptoms occurred last night around 5 or 6 PM. The pain was primarily described as
pressure in the chest area accompanied by shortness of breath, similar to previous episodes she has experienced. Upon arrival, the patient expressed concerns about potentially wasting medical resources despite experiencing these symptoms. She was
previously evaluated in July for similar symptoms, and all tests were normal at that time. The patient revealed that her primary suspicion was severe heartburn, which persisted and led her to seek medical attention. She mentioned she is compliant
with her daily low-dose aspirin therapy and previously completed a regimen of Brilinta following the placement of a cardiac stent in September of the previous year. She has expressed some hesitation about the recurrence of symptoms but was reassured by
the medical team.
PAST MEDICAL AND SURGICAL HISTORY
History of myocardial infarction with stent placement in September of last year.
CHRONIC MEDICAL CONDITIONS SIGNIFICANTLY AFFECTING CARE
Chronic condition impacting care includes the previous myocardial infarction, necessitating ongoing cardiovascular management.
SOCIAL HISTORY
The patient mentioned feeling guilty about 'wasting resources' by seeking medical care, highlighting potential psychological stress related to her health conditions.
MEDICATIONS
- Aspirin 81 mg daily.
PHYSICAL EXAM
General: Alert, no acute distress.
Skin: Warm, dry.
Head: Normocephalic, atraumatic.
Neck: Supple, trachea midline.
Eyes, Ears, Nose, Mouth, and Throat: Oral mucosa moist.
Cardiovascular: Normal peripheral perfusion, no edema.
Respiratory: Respirations are non-labored.
Gastrointestinal: Abdomen nondistended.
Back: Normal range of motion, normal alignment.
Musculoskeletal: Normal range of motion, normal strength.
Neurological: Alert and oriented to person, place, time, and situation, no focal neurological deficit observed.
Psychiatric: Cooperative, appropriate mood and affect.
PLAN
- Perform a chest X-ray to assess for any contributory cardiopulmonary issues.
- Review laboratory results to investigate elevated white blood cell count further.
- Continue monitoring the patients symptoms and provide reassurance.
- Encourage the patient to maintain regular follow-ups with her prenatal nurse, Dr. Ribeiro.
DIFFERENTIAL DIAGNOSIS
The Differential Diagnosis includes, in no particular order and is not limited to:
1. Gastroesophageal reflux disease (GERD)
2. Myocardial infarction
3. Costochondritis
4. Pulmonary embolism
5. Aortic dissection
6. Pericarditis
7. Pneumothorax
8. Atypical asthma or reactive airway disease
9. Anxiety or panic attack
10. Musculoskeletal chest pain
Disposition:
SUMMARY OF ENCOUNTER
The patient, a 44-year-old female with a history of myocardial infarction, presented with chest pain and shortness of breath. Her symptoms began the night before arrival at the emergency department. She expressed concern about wasting medical
resources but was experiencing pressure-like chest pain and shortness of breath comparable to prior episodes. Upon examination, she was assessed for potential acute coronary syndrome (ACS) or pulmonary embolism (PE), but both were ruled out. The
patients EKG was normal, and a decision was made that she was stable for discharge with close follow-up.
DISPOSITION
Discharge
ASSESSMENT
The patient presented with chest pain and shortness of breath, similar to previous non-cardiac episodes. EKG results were normal, and ACS or PE was not suspected.
PLAN
The patient is advised to follow up with her prenatal nurse, and contact instructions for the cardiology hotline were provided.
INDEPENDENT REVIEW OF LABS AND INTERPRETATION OF TESTS
- My independent interpretation of the EKG is normal.
PATIENT EDUCATION AND COUNSELING
The patient was reassured about her stable condition and the normal EKG findings. She was advised to seek regular follow-up with her prenatal nurse to manage her ongoing cardiovascular health.
FOLLOW-UP INSTRUCTIONS
The patient should follow up with her prenatal nurse as scheduled. Cardiology follow-up instructions and hotline information have been provided.
MEDICATION RECONCILIATION
The patient continues her daily low-dose aspirin therapy as mentioned.
MEDICAL DECISION MAKING
- Number and Complexity of Problems Addressed: Chronic conditions affecting care include a history of myocardial infarction with stent placement. Differential Diagnosis includes gastroesophageal reflux disease (GERD), myocardial infarction,
costochondritis, pulmonary embolism, aortic dissection, pericarditis, pneumothorax, atypical asthma or reactive airway disease, anxiety or panic attack, and musculoskeletal chest pain.
- Data:
- Category 1: EKG was performed and independently reviewed, showing normal results.
- Category 3: Management discussed with the prenatal nurse, and further management plans were made for follow-up and continued care.
- Risk: Prescription medication management involves her continuation of low-dose aspirin therapy.
DIAGNOSIS
- Chest pain, unspecified (ICD-10: R07.9)
- History of myocardial infarction with stent placement (ICD-10: I25.2)
Past History
Past History
ED Past Medical History: Asthma (Allergy and sport induced), CAD and Other (Enlarged thyroid, Vertigo)
ED Past Surgical History: Tonsilectomy (and adenoids, ) and Other (Myringotomy as child)
Social History
Tobacco: Non-smoker
Alcohol: Occasional
Personal:
Living: with family
Phy Exam
Physical Exam
Physical Exam:
.
Scores
Heart Score for Chest Pain Patients
STEMI patient?: No
History: Slightly or Non-Suspicious
ECG: Normal
Age: </= 45 years
Risk Factors: >/= 3 Risk Factors or History of CAD
Troponin: </= Normal Limit
Heart Score for Chest Pain Patients: 2
Heart Score Risk: 2.5% MACE over next 6 weeks
Course
Orders/Labs/Results
Orders:
Orders
02/02/25 18:58
Electrocardiogram (*1) Urgent
Reason for Study: Chest Pain
EKG- Treatment ONCE
02/02/25 19:19
Complete Blood Count/With Diff Urgent
Comprehensive Metabolic Panel Urgent
Prothrombin Time Urgent
Troponin I Urgent
02/02/25 20:47
CR Chest - 2 Views Urgent
Comment:
Reason For Exam: chest pain, short of breath
02/02/25 22:12
Troponin I Urgent
02/02/25 23:24
Nitroglycerin Sublingual [Nitrostat (Sublingual)] 0.4 mg SL NOW STA
02/03/25 00:09
Acetaminophen [Tylenol] 650 mg .ROUTE .STK-MED ONE
Acetaminophen [Tylenol] 650 mg PO NOW STA
02/03/25 01:05
Troponin I Urgent
Abnormal Lab Results
02/02/25
19:19
WBC 13.5 H 10^3/uL
(4.8-10.8)
MCH 31.2 H pg
(27.0-31.0)
MCHC 32.6 L g/dL
(33.0-37.0)
MPV 10.7 H fL
(7.4-10.4)
Absolute Neuts (auto) 7.8 H 10^3/uL
(1.4-6.5)
Absolute Lymphs (auto) 4.1 H 10^3/uL
(1.2-3.4)
Absolute Monos (auto) 1.0 H 10^3/uL
(0.1-0.6)
ALT 39 H U/L
(0-35)
02/02/25 19:19
02/02/25 19:19
Vital Signs
Initial and Last Documented VS:
Initial Vital Signs
Temp Pulse Resp BP Pulse Ox
98.9 F 74 16 160/103 98
02/02/25 18:58 02/02/25 18:58 02/02/25 18:58 02/02/25 18:58 02/02/25 18:58
Last Documented Vital Signs
Temp Pulse Resp BP Pulse Ox
98.0 F 68 14 135/81 96
02/02/25 20:49 02/03/25 02:11 02/03/25 02:11 02/03/25 02:11 02/03/25 02:11
*Pulse Oximetry
SaO2: 99
Oxygen Mode of Delivery: Room air
Patient hypoxic: no
*Critical Care Note
Total Time (30-74mins, 75-104mins- exclusive of procedures): Not Applicable
ED Attending Note
-
Portions of this chart may have been created with voice recognition software.� Occasional wrong word or��sound alike� substitutions may have occurred due to the inherent limitations of voice recognition software.
Discharge Plan
Departure
Patient Disposition: Home (Routine Discharge)
Date of Disposition: 02/03/25
Time of Disposition: 01:50
Patient with high blood pressure during this ER visit?: Yes
Condition: Good
Discharge Problem:
Chest pain
Instructions: Chest Pain CBC Follow Up, BLOOD PRESSURE
Prescriptions:
No Action
fluoxetine 20 mg tablet
40 mg PO DAILY
cetirizine [Zyrtec] 10 mg Tablet
10 mg PO DAILY
ticagrelor [Brilinta] 90 mg Tablet
90 mg PO BID Qty: 60 0RF
atorvastatin 80 mg Tablet
80 mg PO QPM Qty: 30 0RF
metoprolol succinate 50 mg Tablet Extended Release 24 Hr
50 mg PO DAILY Qty: 30 0RF
aspirin [Children's Aspirin] 81 mg Tablet,Chewable
81 mg PO DAILY Qty: 30 0RF
pantoprazole [Protonix] 40 mg Tablet,Delayed Release (Dr/Ec)
40 mg PO DAILY
ezetimibe [Zetia] 10 mg Tablet
10 mg PO QPM
atomoxetine 60 mg Capsule
60 mg PO DAILY
budesonide-formoterol [Symbicort] 80-4.5 mcg/actuation Hfa Aerosol Inhaler
1 inh INHALATION R BID
Wegovy 0.5 mg/0.5 mL Pen Injector
0.5 mg SC UPTON
Referrals:
NISHI BRAVO [Other]
Dewey Rodriguez MD [Active, Cardiology] - Call in 1-3 days for appt
Interventions
Interventions:
*Risk Screen - Suicide Last Done: 02/02/25 18:58
*General Assessment Last Done: 02/02/25 18:58
*Neglect/Abuse Screening Last Done: 02/02/25 18:58
*ED- Fall Risk Assessment Last Done: 02/02/25 18:58
*ED COVID-19 Vaccine History Last Done: 02/02/25 18:58
*ED Influenza Vaccine History Last Done: 02/02/25 18:58
*Nursing Disposition Last Done: 02/03/25 02:11
ED- Cardiac Assessment Last Done: 02/02/25 20:50
Discharge Date and Time
Print Language: SWEDISH
[2025-02-02 22:53] LABS: Troponin I 0.019 ng/ml
[2025-02-02] MEDS: NITROSTAT (SUBLINGUAL) 0.4 MG SL (23:31)
[2025-02-03] MEDS: TYLENOL 650 MG PO (00:10)
[2025-02-03 01:49] LABS: Troponin I < 0.012 ng/ml
[2025-02-03 02:11] VITALS: BP 135/81
== END 2025-02-03 02:11 | disposition home or self-care (01) ==
LOC: EMR 18:56
PROVIDERS: Student in an Organized Health Care Education/Training Program; EMERGENCY PHYSICIAN Emergency Medicine
DX: R07.9 Chest pain, unspecified (principal); R03.0 Elevated blood-pressure reading, without diagnosis of hypertension; I25.10 Atherosclerotic heart disease of native coronary artery without angina pectoris; I25.2 Old myocardial infarction; J45.909 Unspecified asthma, uncomplicated; E04.9 Nontoxic goiter, unspecified; Z79.82 Long term (current) use of aspirin; Z95.5 Presence of coronary angioplasty implant and graft
CPT/HCPCS: 99284; 71046; 80053; 84484; 85025; 85610; 93005

== ENCOUNTER → 2025-02-18 07:23 | Outpatient (REF) | payer BC, SELFPAY | LOC: HWRCS 07:23 | PROVIDERS: ATTENDING PHYSICIAN Internal Medicine Cardiovascular Disease | DX: R07.89 Other chest pain (principal) | CPT/HCPCS: 93306 ==